=== PATIENT | female | born 1970 | race Caucasian/White ===

== ENCOUNTER 2021-01-02 19:09 | Inpatient (IN) | payer BC ==
[2021-01-02 20:14] LABS: Absolute Lymphocytes (CBC) 1.9 K/uL (0.7-4.9); Basophils % 0.3 % (0-1.3); Hematocrit 39.6 % (36.0-45.0); Lymphocytes % 6.2 % (15.3-44.8); MPV 8.1 fL (7.6-11.3); RBC Red Blood Cell Count 4.17 M/uL (3.86-4.86)
[2021-01-02 20:19] LABS: Protime INR 0.97
[2021-01-02] MEDS ORDERED: PANTOPRAZOLE 40 MG INJ ONE (20:24)
[2021-01-02] MEDS ORDERED: NA CHLORIDE 0.9% 1,000 ML ONE ×3 (20:24→23:17)
[2021-01-02] MEDS ORDERED: NA CHLORIDE 0.9% 250 ML ONE (20:24)
[2021-01-02] MEDS ORDERED: FAMOTIDINE 20 MG/2 ML VIAL IV ONE (20:25)
[2021-01-02] MEDS ORDERED: METOCLOPRAMIDE 10 MG/2mL INJ ONE (20:26)
--- NOTE | 2021-01-02 20:30 | RAD REPORT ---
EXAM DESCRIPTION: RAD - Chest Single View - 01/02/2021 8:01 pm CLINICAL HISTORY: syncope, low blood pressure COMPARISON: April 2008 TECHNIQUE: AP portable chest image was obtained 01/02/2021 8:01 pm . FINDINGS: Lungs are clear. Heart and vasculature are normal. No measurable pleural effusion and no p neumothorax. No acute bony abnormality seen. No acute aortic findings suspected. IMPRESSION: No acute cardiopulmonary process.
--- NOTE | 2021-01-02 20:38 | RAD REPORT ---
EXAM DESCRIPTION: CT - CTHCSPWOC - 01/02/2021 8:28 pm CLINICAL HISTORY: Syncope;Pain, right periorbital trauma COMPARISON: No comparisons TECHNIQUE: Axial 5 mm thick images of the head were obtained. Axial 2 mm thick images of the cervic al spine were obtained with sagittal and coronal reconstruction images generated and reviewed. All CT scans are performed using dose optimization technique as appropriate and may include automated exposure control or mA/KV adjustment according to patient size. FINDINGS: No intracranial hemorrhage, mass, edema or acute intracranial finding. No suspicion for ac chilkoot infarction. No extra-axial fluid collections. Mastoid air cells and paranasal sinuses are clear. No globe or orbit abnormality seen. Cervical body height and alignment are normal. No disk space narrowing. No fracture or acute bony abn ormality. Central canal detail is inherently limited. No paraspinal mass or hematoma. IMPRESSION: Negative CT head examination for acute or significant finding. Negative CT cervical spine examination for acute or significant finding.
[2021-01-02 20:59] LABS: Blood Morphology Comment NOT SEEN (NOT SEEN); Platelet Estimate INCR
--- NOTE | 2021-01-02 21:17 | RAD REPORT ---
EXAM DESCRIPTION: CT - Chest For Pe Angio - 01/02/2021 8:49 pm CLINICAL HISTORY: syncope;SOB COMPARISON: Chest Single View dated 01/02/2021 TECHNIQUE: Dynamically enhanced 3 mm thick images of the chest were obtained during administration o f approximately 150mL Isovue 370 IV contrast. Coronal and oblique MIP reconstruction images were gene rated and reviewed. Exam utilizes a protocol to evaluate the pulmonary arterial tree. All CT scans are performed using dose optimization technique as appropriate and may include automated exposure control or mA/KV adjustment according to patient size. FINDINGS: No pulmonary emboli are identified. The aorta as imaged shows no acute or suspicious finding. No pericardial thickening or effusion. No infiltrate or mass in the lung parenchyma. No pleural effusion or pleural thickening. No mediastinal or hilar suspicious masses. No chest wall masses or abnormal axillary lymphadenopathy. IMPRESSION: No pulmonary emboli identified. No other significant or suspicious findings.
--- NOTE | 2021-01-02 21:21 | RAD REPORT ---
EXAM DESCRIPTION: CT - Abdomen Pelvis W Contrast - 01/02/2021 8:49 pm CLINICAL HISTORY: Abd pain;Nausea / vomiting COMPARISON: CT ABD PELVIS W CONTRAST dated 03/19/2013 TECHNIQUE: Biphasic, helical CT imaging of the abdomen and pelvis was performed following 100 ml non -ionic IV contrast. No oral contrast administered. All CT scans are performed using dose optimization technique as appropriate and may include automated exposure control or mA/KV adjustment according to patient size. FINDINGS: No suspicious findings in the lung bases. The liver, spleen, and pancreas show no suspicious findings. Cholecystectomy clips are present. No bi liary tree dilatation. Symmetric renal function is seen with no hydronephrosis or suspicious renal mass. No pyelonephritis o r acute parenchymal process. No bladder abnormalities. No adrenal abnormalities. Uterus is absent. No ovarian abnormality seen. A small 12 millimeter cyst present left ovary. No gastric dilatation gastric wall thickening. No dilated small bowel loops. No appendicitis findings . Colon is not dilated. There is mild wall thickening in the colon without mass. Finding is suspiciou s for a mild pancolitis. No free air, free fluid or inflammatory stranding. No mass or bulky lymphadenopathy. No suspicious bony findings. L2 vertebroplasty changes are present. IMPRESSION: Fluid-filled nondilated colon shows mild wall thickening throughout most of the colon. F indings consistent with a mild pancolitis. No small bowel dilatation or acute small bowel finding. No surgically emergent finding.
[2021-01-02] MEDS ORDERED: CEFTRIAXONE/SWI 1gm 1 GM/10 ML SYR ONE (21:27)
[2021-01-02] MEDS ORDERED: METRONIDAZOLE 500mg IVPB 500 MG/100 ML BAG IV ONE (21:28)
[2021-01-02 22:38] LABS: SARS-COV-2 RT PCR NEGATIVE (NEGATIVE)
[2021-01-02 22:53] LABS: ALT/SGPT 25 U/L (12-78); AST/SGOT 19 U/L (15-37); Alkaline Phosphatase 76 U/L (45-117); BUN Blood Urea Nitrogen 22 mg/dL (7-18); Bicarbonate 20 mmol/L (21-32); Bilirubin Direct < 0.1 mg/dL (0-0.2); Bilirubin Total 0.4 mg/dL (0.2-1.0); Glucose Level 97 mg/dL (74-106); Magnesium 2.1 mg/dL (1.8-2.4); NT PRO-BNP 67 pg/mL (<125); Potassium 3.2 mmol/L (3.5-5.1); Protein, Total 7.3 g/dL (6.4-8.2); Sodium Level 141 mmol/L (136-145); Troponin (Emerg Dept Use Only) < 0.02 ng/mL (0.0-0.045)
--- NOTE | 2021-01-02 23:25 | EDPHYS ---
Physician Documentation [facility] Name: Vaishnavi Castano Age: 50 yrs Sex: Female : 1970 Arrival Date: 01/02/2021 Time: 19:10 Bed 27 Private MD: ED Physician Hernando Horne HPI: 01/02 20:12 This 50 yrs old Female presents to ER via EMS with complaints of hypotension. mh7 20:12 The patient has experienced syncope, collapsed. Onset: The symptoms/episode mh7 began/occurred just prior to arrival, today. Duration: The patient has had multiple episodes, that last 1 minute(s). Context: the episode(s) was witnessed, by family, son, occurred at home, occurred while the patient was defecating, sitting, Just prior to the episode the patient experienced abdominal pain, dizziness, lightheadedness, vomiting. Associated injury: Head/face: right hinduism, abrasion, contusion, tenderness, Neck: posterior neck, pain, tenderness. Associated signs and symptoms: Pertinent positives: abdominal pain, diaphoresis, diarrhea, dizziness, lightheadedness, nausea, shortness of breath, vomiting, Pertinent negatives: agitation, ataxia, blurred vision, chest pain, combativeness, confusion, headache, numbness, palpitations, seizure, tingling, vertigo, weakness. Current symptoms: nausea, generalized fatigue. 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 - Social history:: Smoking status: unknown Patient uses alcohol, but reports only rare drinking. ROS: 20:12 Constitutional: Negative for fever, chills, and weight loss, Eyes: Negative for injury, mh7 pain, redness, and discharge, ENT: Negative for injury, pain, and discharge, Cardiovascular: Negative for chest pain, palpitations, and edema, Back: Negative for injury and pain, : Negative for injury, bleeding, discharge, and swelling, MS/Extremity: Negative for injury and deformity, Skin: Negative for injury, rash, and discoloration, Neuro: Negative for headache, weakness, numbness, tingling, and seizure, Psych: Negative for depression, anxiety, suicide ideation, homicidal ideation, and hallucinations, Allergy/Immunology: Negative for hives, rash, and allergies, Endocrine: Negative for neck swelling, polydipsia, polyuria, polyphagia, and marked weight changes, Hematologic/Lymphatic: Negative for swollen nodes, abnormal bleeding, and unusual bruising. Exam: 20:12 Eyes: Pupils equal round and reactive to light, extra-ocular motions intact. Lids and mh7 lashes normal. Conjunctiva and sclera are non-icteric and not injected. Cornea within normal limits. Periorbital areas with no swelling, redness, or edema. ENT: Nares patent. No nasal discharge, no septal abnormalities noted. Tympanic membranes are normal and external auditory canals are clear. Oropharynx with no redness, swelling, or masses, exudates, or evidence of obstruction, uvula midline. Mucous membranes moist. 20:12 Chest/axilla: Normal chest wall appearance and motion. Nontender with no deformity. No lesions are appreciated. 20:12 Abdomen/GI: Soft, non-tender, with normal bowel sounds. No distension or tympany. No guarding or rebound. No evidence of tenderness throughout. Back: No spinal tenderness. No costovertebral tenderness. Full range of motion. Skin: Warm, dry with normal turgor. Normal color with no rashes, no lesions, and no evidence of cellulitis. 20:12 MS/ Extremity: Pulses equal, no cyanosis. Neurovascular intact. Full, normal range of motion. Neuro: Awake and alert, GCS 15, oriented to person, place, time, and situation. Cranial nerves II-XII grossly intact. Motor strength 5/5 in all extremities. Sensory grossly intact. Cerebellar exam normal. Normal gait. Psych: Awake, alert, with orientation to person, place and time. Behavior, mood, and affect are within normal limits. 20:12 Constitutional: The patient appears in no acute distress, alert, awake, obviously ill. 20:12 Head/face: Noted is abrasion(s), that are mild, of the right hinduism. 20:12 Neck: External neck: tenderness, that is mild, of the occiput, left mid cervical area, right mid cervical area, left trapezius and right trapezius, C-spine: Thyroid: appears normal, Trachea: is midline with no obvious abnormalities, ROM/movement: is normal, Lymph nodes: no appreciated lymphadenopathy. 20:12 Cardiovascular: Rate: bradycardic, Rhythm: regular, Pulses: no pulse deficits are appreciated, Heart sounds: normal, normal S1and S2, Edema: is not appreciated, JVD: is not appreciated. 20:12 Abdomen/GI: Rectal exam: rectal tone normal, Stool: brown, guaiac positive, hemorrhoid(s), are not appreciated, mass, is not appreciated, swelling, is not appreciated, tenderness, is not appreciated, fecal impaction, is not appreciated, the exam is chaperoned by the nurse, Indicators: Vital Signs: 19:12 BP 83 / 48; Pulse 48; Resp 17; Temp 97.5; Pulse Ox 98% ; Weight 68.49 kg; Height 5 ft. rr5 8 in. (172.72 cm); Pain 6/10; 19:40 BP 92 / 51; Pulse 80; Resp 17; Pulse Ox 98% ; rr5 21:25 BP 95 / 60; Pulse 89; Resp 19; Pulse Ox 100% ; rr5 22:37 BP 92 / 55; Pulse 92; Resp 17; Pulse Ox 98% ; rr5 23:30 BP 90 / 59; Pulse 99; Resp 16; Pulse Ox 98% ; rr5 0307 00:20 BP 94 / 57; Pulse 100; Resp 14; Pulse Ox 98% ; rr5 01:14 BP 100 / 65; Pulse 98; Resp 14; Pulse Ox 100% ; rr5 01:36 BP 103 / 68; Pulse 95; Resp 17; Temp 99; Pulse Ox 99% ; rr5 01/02 19:12 Body Mass Index 22.96 (68.49 kg, 172.72 cm) rr5 MDM: 01/02 23:21 Differential Diagnosis: aortic aneurysm, cardiac arrhythmia, cerebrovascular accident, mh7 GI bleed, sepsis, vasovagal episode. Data reviewed: vital signs, nurses notes, lab test result(s), amylase and lipase, cardiac enzymes, CBC, electrolytes, EKG, radiologic studies, CT scan, plain films. Data interpreted: Pulse oximetry: on room air is 98 %. Interpretation: normal. Counseling: I had a detailed discussion with the patient and/or guardian regarding: the historical points, exam findings, and any diagnostic results supporting the discharge/admit diagnosis, lab results, radiology results, the need for further work-up and treatment in the hospital. Response to treatment: the patient's symptoms have mildly improved after treatment. 23:24 Patient medically screened. [facility] 01/02 19:21 Order name: Basic Metabolic Panel; Complete Time: 22:56 [facility] 01/02 19:21 Order name: CBC with Diff; Complete Time: 21:05 [facility] 01/02 19:21 Order name: LFT's; Complete Time: 22:56 [facility] 01/02 19:21 Order name: Magnesium; Complete Time: 22:56 [facility] 01/02 19:21 Order name: NT PRO-BNP; Complete Time: 22:56 [facility] 01/02 19:21 Order name: PT-INR; Complete Time: 21:05 [facility] 01/02 19:21 Order name: Troponin (emerg Dept Use Only); Complete Time: 22:56 [facility] 01/02 19:21 Order name: UDS [facility] 01/02 19:21 Order name: Blood Culture Adult (2) [facility] 01/02 19:23 Order name: Lipase; Complete Time: 21:05 [facility] 01/02 19:34 Order name: Type And Screen [facility] 01/02 19:34 Order name: Type and Screen; Complete Time: 22:07 [facility] 01/02 20:16 Order name: CREATININE WHOLE BLOOD; Complete Time: 21:05 [facility] 01/02 20:59 Order name: Manual Differential; Complete Time: 21:05 [facility] 01/02 19:21 Order name: XRAY Chest (1 view); Complete Time: 21:05 [facility] 01/02 19:36 Order name: CT Head C Spine; Complete Time: 21:05 [facility] 01/02 19:40 Order name: CT Chest For PE Angio; Complete Time: 22:07 [facility] 01/02 19:40 Order name: CT Abd/Pelvis - IV Contrast Only; Complete Time: 22: [facility] 01/02 21:00 Order name: COVID-19 : Document "Date of Symptom Onset" if Symptomatic. 5 01/02 21:00 Order name: CORONAVIRUS [facility] 01/02 21:06 Order name: Lactate [facility] 01/02 21:06 Order name: Procalcitonin; Complete Time: 22:38 [facility] 01/02 21:07 Order name: Lactate; Complete Time: 22:07 [facility] 01/02 22:38 Order name: COVID-19/FLU A+B; Complete Time: 22:38 [facility] 01/02 23:14 Order name: Occult Blood--Ancillary rr5 01/02 23:30 Order name: Urine Microscopic Only la1 01/02 23:36 Order name: Urine Dipstick--Ancillary (enter results) tt3 01/02 23:36 Order name: Urine Dipstick-Ancillary; Complete Time: 01:22 [facility] 01/02 19:21 Order name: EKG; Complete Time: 19:22 [facility] 01/02 19:21 Order name: Cardiac monitoring; Complete Time: 20:00 [facility] 01/02 19:21 Order name: EKG - Nurse/Tech; Complete Time: 20:00 [facility] 01/02 19:21 Order name: IV Saline Lock; Complete Time: 20:00 [facility] 01/02 19:21 Order name: Labs collected and sent; Complete Time: 20:00 [facility] 01/02 19:21 Order name: O2 Per Protocol; Complete Time: 20:00 [facility] 01/02 19:21 Order name: O2 Sat Monitoring; Complete Time: 20:00 [facility] 01/02 19:21 Order name: Urine Dipstick-Ancillary (obtain specimen); Complete Time: 23:37 [facility] 01/02 19:21 Order name: Urine Test (obtain specimen); Complete Time: 23:37 7 Administered Medications: 19:35 CANCELLED (wrong medication): Zofran (Ondansetron) 4 mg IVP once; over 2 minutes [facility] 20:00 Drug: NS 0.9% 1000 ml Route: IV; Rate: 1000 ml; Site: right antecubital; rr5 21:00 Follow up: Response: No adverse reaction; IV Status: Completed infusion; IV Intake: rr5 1000ml 20:00 Drug: ProTONIX 80 mg Route: IVP; Site: right antecubital; rr5 21:00 Follow up: Response: No adverse reaction rr5 20:04 Drug: Reglan 10 mg Route: IVP; Site: right antecubital; rr5 21:04 Follow up: Response: No adverse reaction rr5 20:10 Drug: Pepcid 20 mg Route: IVP; Site: right antecubital; rr5 21:00 Follow up: Response: No adverse reaction rr5 21:20 Drug: Rocephin - (cefTRIAXone) 1 grams Route: IVPB; Infused Over: 30 mins; Site: right rr5 antecubital; 21:35 Follow up: Response: No adverse reaction; IV Status: Completed infusion; IV Intake: [id number] 21:22 Drug: ProTONIX 8 mg/hr Route: IV; Rate: 25 ml/hr; Site: left wrist; rr5 23:36 Follow up: Response: No adverse reaction; IV Status: Infusion continued upon admission; rr5 IV Intake: 100ml 21:26 Drug: NS 0.9% 1000 ml Route: IV; Rate: 1000 ml; Site: left wrist; rr5 22:20 Follow up: Response: No adverse reaction; IV Status: Completed infusion; IV Intake: rr5 1000ml 21:35 Drug: Flagyl 500 mg Volume: 100 ml; Route: IVPB; Rate: 200 ml/hr; Infused Over: 30 rr5 mins; Site: right antecubital; 22:00 Follow up: Response: No adverse reaction; IV Status: Completed infusion; IV Intake: rr5 100ml 23:10 Drug: NS 0.9% 1000 ml Route: IV; Rate: 1 bolus; Site: left wrist; rr5 01/03 00:10 Follow up: Response: No adverse reaction; IV Status: Completed infusion rr5 00:20 Drug: NS 0.9% 1000 ml Route: IV; Rate: 150 ml/hr; Site: left wrist; rr5 01:23 Follow up: Response: No adverse reaction; IV Status: Infusion continued upon admission; rr5 IV Intake: 150ml Disposition: 01/02/21 23:24 Hospitalization ordered by Trell Billy for Inpatient Admission. Preliminary diagnosis are Syncope and collapse, Pancolitis, Leukocytosis. - Bed requested for Telemetry/MedSurg (Inpatient). - Status is Inpatient Admission. rr5 - Condition is Stable. - Problem is new. - Symptoms have improved. Signatures: Dispatcher [employer] [facility] Bandar Frank, [employer]-C [employer]-Cla1 Kim Alves RN RN Trell Clinton RN RN rr5 Hernando Horne MD MD [facility] Corrections: (The following items were deleted from the chart) 01/02 19:35 19:22 Zofran (Ondansetron) 4 mg IVP once; over 2 minutes ordered. [place] [id number] 21:48 21:17 Influenza Screen (A \\T\\ B)+[id number].LAB.BRZ ordered. [facility] 01/03 01:06 01/02 23:24 Hospitalization Ordered by Trell Billy MD for Inpatient Admission. Preliminary diagnosis is Syncope and collapse; Pancolitis; Leukocytosis. Bed requested for Telemetry/MedSurg (Inpatient). Status is Inpatient Admission. Condition is Stable. Problem is new. Symptoms have improved. [facility] 01/03 01:37 01:06 01/02/2021 23:24 Hospitalization Ordered by Trell Billy MD for Inpatient rr5 Admission. Preliminary diagnosis is Syncope and collapse; Pancolitis; Leukocytosis. Bed requested for Telemetry/MedSurg (Inpatient). Status is Inpatient Admission. Condition is Stable. Problem is new. Symptoms have improved. cg
--- NOTE | 2021-01-02 23:25 | ER ---
Nurse's Notes [facility] Name: Vaishnavi Castano Age: 50 yrs Sex: Female : 1970 Arrival Date: 01/02/2021 Time: 19:10 Bed 27 Private MD: Diagnosis: Syncope and collapse;Pancolitis;Leukocytosis Presentation: 01/02 19:12 Chief complaint: EMS states: low blood pressure,syncopal episode hit the right side of rr5 her eye sustained abrasion. she vomited 6x complaints of of feeling tired and pain at the back of her neck. denies LOC. Coronavirus screen: sore throat, Client presents with at least one sign or symptom that may indicate coronavirus-19. Standard/surgical mask placed on the client. Provider contacted for isolation considerations. Ebola Screen: Patient negative for fever greater than or equal to 101.5 degrees Fahrenheit, and additional compatible Ebola Virus Disease symptoms Patient denies exposure to infectious person. Patient denies travel to an Ebola-affected area in the 21 days before illness onset. Initial Sepsis Screen: Does the patient meet any 2 criteria? No. Patient's initial sepsis screen is negative. Does the patient have a suspected source of infection? No. Patient's initial sepsis screen is negative. Risk Assessment: Do you want to hurt yourself or someone else? Patient reports no desire to harm self or others. Onset of symptoms was January 02, 2021. 19:12 Method Of Arrival: EMS: [facility] rr5 19:12 Acuity: RYLIE 2 rr5 Triage Assessment: 19:10 General: Appears in no apparent distress. comfortable, Behavior is calm, cooperative. 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 - Social history:: Smoking status: unknown Patient uses alcohol, but reports only rare drinking. Screenin:10 Abuse screen: Denies threats or abuse. Denies injuries from another. Nutritional rr5 screening: No deficits noted. Tuberculosis screening: No symptoms or risk factors identified. Fall Risk Fall in past 12 months (25 points). IV access (20 points). Total Still Fall Scale indicates High Risk Score (45 or more points). Fall prevention measures have been instituted. Side Rails Up X 2 Placed Close to Nursing Station Frequent Obs/Assessments Occuring Family Present and informed to notify staff if the need to leave the bedside As available patient and family educated on Fall Prevention Program and Strategies. Assessment: 19:10 General: Appears in no apparent distress. uncomfortable. rr5 19:10 Pain: Complains of pain in nape Pain currently is 6 out of 10 on a pain scale. Quality rr5 of pain is described as aching, Pain began gradually. Neuro: Level of Consciousness is awake, alert, obeys commands, Oriented to person, place, time, Reports a syncopal episode. Cardiovascular: Capillary refill < 3 seconds Patient's skin is warm and dry. low BP. Respiratory: Airway is patent Respiratory effort is even, unlabored, Respiratory pattern is regular, symmetrical. GI: Abdomen is round non-distended, Reports diarrhea, nausea, vomiting. : No signs and/or symptoms were reported regarding the genitourinary system. EENT: No signs and/or symptoms were reported regarding the EENT system. Derm: Skin temperature is warm Wound noted right supraorbital ridge Wound is abrasion. Musculoskeletal: Capillary refill < 3 seconds. 19:30 Reassessment: went to restroom to have a bowel movement, offered bedside but refused, rr5 ED provider aware. 20:20 Reassessment: Patient appears in no apparent distress at this time. Patient is alert, rr5 oriented x 3, equal unlabored respirations, skin warm/dry/pink. send for CT scan. 20:51 Reassessment: holy from laboratory called WBC 30.1, ED provider aware. rr5 21:30 Reassessment: Patient appears in no apparent distress at this time. Patient is alert, rr5 oriented x 3, equal unlabored respirations, skin warm/dry/pink. antibiotics given. 22:20 Reassessment: laboratory called to recollect for the gree top, verify to laboratory rr5 staff 2 green top sent and said no need to recollect. 01/03 00:21 Reassessment: Patient appears in no apparent distress at this time. for admission rr5 awaiting for room assignment. Vital Signs: 01/02 19:12 BP 83 / 48; Pulse 48; Resp 17; Temp 97.5; Pulse Ox 98% ; Weight 68.49 kg; Height 5 ft. rr5 8 in. (172.72 cm); Pain 6/10; 19:40 BP 92 / 51; Pulse 80; Resp 17; Pulse Ox 98% ; rr5 21:25 BP 95 / 60; Pulse 89; Resp 19; Pulse Ox 100% ; rr5 22:37 BP 92 / 55; Pulse 92; Resp 17; Pulse Ox 98% ; rr5 23:30 BP 90 / 59; Pulse 99; Resp 16; Pulse Ox 98% ; rr5 01/03 00:20 BP 94 / 57; Pulse 100; Resp 14; Pulse Ox 98% ; rr5 01:14 BP 100 / 65; Pulse 98; Resp 14; Pulse Ox 100% ; rr5 01:36 BP 103 / 68; Pulse 95; Resp 17; Temp 99; Pulse Ox 99% ; rr5 01/02 19:12 Body Mass Index 22.96 (68.49 kg, 172.72 cm) rr5 ED Course: 01/02 19:10 Patient arrived in ED. rr5 19:10 EKG done, by ED staff, reviewed by Hernando Horne MD. Maintain EMS IV. Dressing intact. rr5 Good blood return noted. Site clean \T\ dry. Gauge \T\ site: G 20 right AC. 19:11 Patient has correct armband on for positive identification. Bed in low position. Call rr5 light in reach. Side rails up X2. bakeshop cleaner on. Pulse ox on. NIBP on. 19:11 Warm blanket given. rr5 19:15 Triage completed. rr5 19:17 Hernando Horne MD is Attending Physician. [facility] 19:19 Arm band placed on right wrist. rr5 19:40 Inserted saline lock: 20 gauge in left wrist, using aseptic technique. Blood collected. rr5 19:40 First set of blood cultures drawn by me. rr5 19:59 Clinton, Trell, RN is Primary Nurse. rr5 20:02 XRAY Chest (1 view) In Process Unspecified. EDMS 20:33 CT Head C Spine In Process Unspecified. EDMS 20:49 CT Chest For PE Angio In Process Unspecified. EDMS 20:49 CT Abd/Pelvis - IV Contrast Only In Process Unspecified. EDMS 21:28 COVID swab sent to lab. Flu and/or RSV swab sent to lab. rr5 23:23 Trell Billy MD is Hospitalizing Provider. [facility] 03 01:21 No provider procedures requiring assistance completed. Patient admitted, IV remains in rr5 place. intact, No redness/swelling at site. Administered Medications: 01/02 19:35 CANCELLED (wrong medication): Zofran (Ondansetron) 4 mg IVP once; over 2 minutes [facility] 20:00 Drug: NS 0.9% 1000 ml Route: IV; Rate: 1000 ml; Site: right antecubital; rr5 21:00 Follow up: Response: No adverse reaction; IV Status: Completed infusion; IV Intake: rr5 1000ml 20:00 Drug: ProTONIX 80 mg Route: IVP; Site: right antecubital; rr5 21:00 Follow up: Response: No adverse reaction rr5 20:04 Drug: Reglan 10 mg Route: IVP; Site: right antecubital; rr5 21:04 Follow up: Response: No adverse reaction rr5 20:10 Drug: Pepcid 20 mg Route: IVP; Site: right antecubital; rr5 21:00 Follow up: Response: No adverse reaction rr5 21:20 Drug: Rocephin - (cefTRIAXone) 1 grams Route: IVPB; Infused Over: 30 mins; Site: right rr5 antecubital; 21:35 Follow up: Response: No adverse reaction; IV Status: Completed infusion; IV Intake: [id number] 21:22 Drug: ProTONIX 8 mg/hr Route: IV; Rate: 25 ml/hr; Site: left wrist; rr5 23:36 Follow up: Response: No adverse reaction; IV Status: Infusion continued upon admission; rr5 IV Intake: 100ml 21:26 Drug: NS 0.9% 1000 ml Route: IV; Rate: 1000 ml; Site: left wrist; rr5 22:20 Follow up: Response: No adverse reaction; IV Status: Completed infusion; IV Intake: rr5 1000ml 21:35 Drug: Flagyl 500 mg Volume: 100 ml; Route: IVPB; Rate: 200 ml/hr; Infused Over: 30 rr5 mins; Site: right antecubital; 22:00 Follow up: Response: No adverse reaction; IV Status: Completed infusion; IV Intake: rr5 100ml 23:10 Drug: NS 0.9% 1000 ml Route: IV; Rate: 1 bolus; Site: left wrist; rr5 03 00:10 Follow up: Response: No adverse reaction; IV Status: Completed infusion rr5 00:20 Drug: NS 0.9% 1000 ml Route: IV; Rate: 150 ml/hr; Site: left wrist; rr5 01:23 Follow up: Response: No adverse reaction; IV Status: Infusion continued upon admission; rr5 IV Intake: 150ml Intake: 01/02 21:00 IV: 1000ml; Total: 1000ml. rr5 21:35 IV: 50ml; Total: 1050ml. rr5 22:00 IV: 100ml; Total: 1150ml. rr5 22:20 IV: 1000ml; Total: 2150ml. rr5 23:36 IV: 100ml; Total: 2250ml. rr5 01/03 01:23 IV: 150ml; Total: 2400ml. rr5 Outcome: 01/02 23:24 Decision to Hospitalize by Provider. mh7 01/03 01:21 Admitted to Med/surg accompanied by tech, via stretcher, room 219, with chart, Report rr5 called to [place] Condition: stable Instructed on the need for admit. 01:37 Patient left the ED. rr5 Signatures: Dispatcher [employer] Trell Chua RN RN rr5 Hernando Horne MD MD 7
[2021-01-03 00:08] LABS: Urine Blood TRACE (NEG); Urine Glucose NEGATIVE (NEG); Urine Protein NEGATIVE (NEG)
[2021-01-03] MEDS ORDERED: NA CHLORIDE 0.9% 1,000 ML ONE (00:59)
--- NOTE | 2021-01-03 01:27 | P.HP ---
Certification for Inpatient Patient admitted to: Inpatient With expected LOS: >2 Midnights Patient will require the following post-hospital care: None Practitioner: I am a practitioner with admitting privileges, knowledge of patient current condition, hospital course, and medical plan of care. Services: Services provided to patient in accordance with Admission requirements found in Title 42 Section 412.3 of the Code of Federal Regulations <Bandar Frank - Last Filed: 01/03/21 01:21> Patient History Date of Service: 01/03/21 Primary Care Provider: Dr. Rsoario Reason for admission: Pancolitis History of Present Illness: 42-year-old female with history of hypertension, psoriatic arthritis, lupus hypothyroidism presents emergency department for syncope. Patient reports that she has been having abdominal cramping throughout the day and after having a bowel movement she stood up from the toilet and had a syncopal episode with positive loss of consciousness. Patient does not remember the events leading up to syncope, unsure if she experienced any chest pain/dizziness/headache but does not think so. Upon arrival by EMS patient's blood pressure was 60/40, this improved with fluids while the patient is still mildly hypertensive in the emergency department. Workup in the emergency department significant for white blood cell count 30.[address] demonstrates pain colitis, patient did have a positive stool guaiac in the emergency department, hemoglobin 13.6 hematocrit 39.6, patient denies any melena or hematochezia. - Past Medical/Surgical History -: Lupus -: Psoriatic arthritis -: Colitis -: Hypothyroidism -: Hypertension -: Hysterectomy -: Cholecystectomy Psychosocial/ Personal History: Patient lives with family - Family History Family History: Reviewed- Non-Contributory - Social History Smoking Status: Never smoker Alcohol use: No CD- Drugs: No Caffeine use: Yes Place of Residence: Home <Bandar Frank - Last Filed: 01/03/21 01:21> Date of Service: 01/03/21 <Trell Billy - Last Filed: 01/03/21 20:39> Allergies propoxyphene napsylate [From Darvocet-N 100] Allergy (Mild, Verified 08/02/12 07:41) Hives/Rash Home Medications: Bupropion HCl [Wellbutrin Xl] 300 mg PO BREAKFAST 01/03/21 Cyclobenzaprine HCl [Flexeril] 5 mg PO DAILY 01/03/21 Dextroamphetamine/Amphetamine [Adderall 15 mg Tablet] 15 mg PO DAILY AT SUPPER 01/03/21 Dextroamphetamine/Amphetamine [Adderall 30 mg Tablet] 30 mg PO DAILY WITH BREAKFAST 01/03/21 Folic Acid/Vit B Complex and C [Folbee Plus Tablet] 5 mg PO DAILY 01/03/21 Hydrocodone 10/APAP 325 [[place] 10/325] 1 tab PO Q6H PRN 01/03/21 Levothyroxine [Synthroid] 125 mcg PO [id number] 01/03/21 Methotrexate/Pf [Rasuvo 25 mg/0.5 ml Autoinj] 50 mg SQ EVERY 7TH DAY 01/03/21 Naloxegol Oxalate [Movantik] 25 mg PO DAILY 01/03/21 Naproxen/Esomeprazole Mag [Vimovo Dr 500-20 mg Tablet] 1 tab PO BID 01/03/21 Pantoprazole [Protonix Tab] 40 mg PO NOON 01/03/21 Ropinirole HCl [Requip] 1 mg PO DAILY 01/03/21 Topiramate [Topamax] 200 mg PO BID 01/03/21 Review of Systems 10-point ROS is otherwise unremarkable General: Weakness, Malaise Cardiovascular: Light Headedness, As per HPI Gastrointestinal: Nausea, Vomiting, Abdominal Pain, Diarrhea <Bandar Frank - Last Filed: 01/03/21 01:21> Physical Examination - Physical Exam General: Alert, In no apparent distress, Oriented x3 HEENT: Atraumatic, PERRLA, Other (Mucous membranes dry) Neck: Supple, 2+ carotid pulse no bruit, No LAD Respiratory: Clear to auscultation bilaterally, Normal air movement Cardiovascular: No edema, Regular rate/rhythm, Normal S1 S2 Capillary refill: <2 Seconds Gastrointestinal: Normal bowel sounds, Tenderness (Mild abdominal tenderness in the lower quadrants and suprapubic area) Musculoskeletal: No contractures, No erythema, No tenderness Integumentary: No rashes Neurological: Normal speech, Normal strength at 5/5 x4 extr, Normal tone, Normal affect - Studies Laboratory Data (last 24 hrs) 01/02/21 19:52: Lipase 179 01/02/21 19:52: PT 11.1, INR 0.97 01/02/21 19:52: WBC 30.10 H*, Hgb 13.6, Hct 39.6, Plt Count 490 H 01/02/21 19:52: Sodium 141, Potassium 3.2 L, BUN 22 H, Creatinine 1.22, Glucose 97, Magnesium 2.1, Total Bilirubin 0.4, AST 19, ALT 25, Alkaline Phosphatase 76 <Bandar Frank - Last Filed: 01/03/21 01:21> - Studies Laboratory Data (last 24 hrs) 01/02/21 19:52: Lipase 179 01/02/21 19:52: PT 11.1, INR 0.97 01/02/21 19:52: WBC 30.10 H*, Hgb 13.6, Hct 39.6, Plt Count 490 H 01/02/21 19:52: Sodium 141, Potassium 3.2 L, BUN 22 H, Creatinine 1.22, Glucose 97, Magnesium 2.1, Total Bilirubin 0.4, AST 19, ALT 25, Alkaline Phosphatase 76 Microbiology Data (last 24 hrs): 01/02/21 19:52 Blood - Blood Anaerobic Blood Culture - Final <Trell Billy - Last Filed: 01/03/21 20:39> Assessment and Plan - Plan Assessment Vomiting/diarrhea/abdominal pain secondary to pancolitis Hypotension Hypokalemia Psoriatic arthritis, lupus Hypertension Hypothyroidism Plan Vomiting/diarrhea/abdominal pain secondary to pancolitis: Continue with IV Rocephin/Flagyl, stool studies ordered including C. diff as patient as significantly elevated white cell count. P.r.n. pain medication, start a clear liquid diet at this time as patient is tolerating p.o. in the emergency department. Continue with NS at 150 cc/hour over night as patient appears dry. DVT prophylaxis with SCDs at this time as patient was guaiac-positive. Continue with Protonix 40 IV b.i.d., trend hemoglobin hematocrit levels. Patient denies any melena/hematochezia. Hypotension: Patient received 3 L normal saline bolus in the emergency department, continue NS at 150 cc/hour., lactate normal, no end-organ damage, doubt sepsis. Hypokalemia: Potassium protocol in place. Psoriatic arthritis, lupus: Obtain and review home medications, start as appropriate. Hypertension: Obtain and continue home medications as appropriate Hypothyroidism: Thyroid panel with morning labs. Continue home meds. Discharge Plan: Home Plan to discharge in: 72 Hours - Advance Directives Does patient have a Living Will: No Does patient have a Durable POA for Healthcare: No - Code Status/Comfort Care Code Status Assessed: Yes (Full code) Critical Care: No Time Spent Managing Pts Care (In Minutes): 55 <Bandar Frank - Last Filed: 01/03/21 01:21> - Plan Plan of care reviewed and agree as noted above by Bandar Frank. Pancolitis with diarrhea. Metabolic acidosis likely secondary to diarrhea continue antibiotics <Trell Billy - Last Filed: 01/03/21 20:39>
[2021-01-03] MEDS ORDERED: ONDANSETRON 4 MG/2 ML VIAL IV PRN (01:50)
[2021-01-03] MEDS ORDERED: SODIUM CHLORIDE 0.9% 10ML INJ IV PRN (01:50)
[2021-01-03] MEDS ORDERED: ACETAMINOPHEN 500 MG TAB PO PRN (01:50)
[2021-01-03 02:13] LABS: Barbiturates POSITIVE (NEGATIVE); Benzodiazepines NEGATIVE (NEGATIVE); Cocaine NEGATIVE (NEGATIVE); METHAMPHETAM POSITIVE (NEGATIVE); Methadone NEGATIVE (NEGATIVE); Opiates NEGATIVE (NEGATIVE); Phencyclidine NEGATIVE (NEGATIVE); THC Cannibis NEGATIVE (NEGATIVE)
[2021-01-03 02:26] VITALS: BMI 22.9
[2021-01-03 06:26] LABS: Absolute Lymphocytes (CBC) 2.5 K/uL (0.7-4.9); Basophils % 0.2 % (0-1.3); Hematocrit 30.3 % (36.0-45.0); Lymphocytes % 20.4 % (15.3-44.8); MPV 8.3 fL (7.6-11.3); RBC Red Blood Cell Count 3.17 M/uL (3.86-4.86)
[2021-01-03 06:52] LABS: Albumin 2.7 g/dL (3.4-5.0); Bilirubin Total 0.4 mg/dL (0.2-1.0); Magnesium 1.9 mg/dL (1.8-2.4); Potassium 3.2 mmol/L (3.5-5.1); Protein, Total 5.2 g/dL (6.4-8.2); Thyroid Stimulating Hormone 0.701 uIU/mL (0.360-3.740)
[2021-01-03] MEDS: NA CHLORIDE 0.9% 1,000 ML IV SCH ×2 (07:00→08:30)
[2021-01-03] MEDS: METRONIDAZOLE 500mg IVPB 500 MG/100 ML BAG IV SCH ×2 (08:56→17:00)
[2021-01-03] MEDS ORDERED: CEFTRIAXONE 1 GM/NS 50 ML 1 GM/50 ML BAG IV SCH (09:00)
[2021-01-03] MEDS: PANTOPRAZOLE 40 MG INJ IVP SCH ×2 (09:01→20:17)
[2021-01-03] MEDS: HYDROCODONE/APAP 7.5/325 MG TAB PO PRN ×3 (09:09→22:12)
[2021-01-03] MEDS: CEFTRIAXONE/SWI 1gm 1 GM/10 ML SYR IV SCH (09:49)
--- NOTE | 2021-01-03 11:46 | P.PN ---
Subjective Date of Service: 01/03/21 Primary Care Provider: Dr. Rosario Chief Complaint: Pancolitis Subjective: Improving (headache slightly improved, continues with diarrhea, tolerated some clear liquids) Review of Systems 10-point ROS is otherwise unremarkable Physical Examination - Vital Signs Temperature: 97.8 F Blood Pressure: 93/54 Pulse: 85 Respirations: 18 Pulse Ox (%): 100 - Studies Laboratory Data (last 24 hrs) 01/02/21 19:52: Lipase 179 01/02/21 19:52: PT 11.1, INR 0.97 01/02/21 19:52: WBC 30.10 H*, Hgb 13.6, Hct 39.6, Plt Count 490 H 01/02/21 19:52: Sodium 141, Potassium 3.2 L, BUN 22 H, Creatinine 1.22, Glucose 97, Magnesium 2.1, Total Bilirubin 0.4, AST 19, ALT 25, Alkaline Phosphatase 76 Microbiology Data (last 24 hrs): 01/02/21 19:52 Blood - Blood Anaerobic Blood Culture - Final Assessment & Plan Physician Review Additional Text: Physical Exam General: alert, NAD HEENT: MMM Respiratory: Clear to auscultation bilaterally, Normal air movement Cardiovascular: No edema, Regular rate/rhythm, Normal S1 S2 Abd: soft, mild TTP in b/l lower quadrants Ext: no edema, no rash Problem List Vomiting/diarrhea/abdominal pain secondary to pancolitis Hypotension Hypokalemia metabolic acidosis Psoriatic arthritis, lupus Hypertension Hypothyroidism some improvement already continue antibiotics WBC down to 12. C.diff ordered/pending on CLD, can advance for dinner if tolerates hypernatremic slightly now, switch to d5 1/2 NS metabolic acidosis - likely due to diarrhea Vomiting/diarrhea/abdominal pain secondary to pancolitis: Continue with IV Rocephin/Flagyl, stool studies ordered including C. diff as patient as significantly elevated white cell count. P.r.n. pain medication, start a clear liquid diet at this time as patient is tolerating p.o. in the emergency department. Continue with NS at 150 cc/hour over night as patient appears dry. DVT prophylaxis with SCDs at this time as patient was guaiac-positive. Continue with Protonix 40 IV b.i.d., trend hemoglobin hematocrit levels. Patient denies any melena/hematochezia. Obtain and continue home medications, start as appropriate. Code: full Dispo: anticipate dc home in ~48hrs. Time Spent Managing Pts Care (In Minutes): 35
[2021-01-03] MEDS: LIDOCAINE 4% PATCH TOP SCH (15:00)
[2021-01-03] MEDS: D5 0.45 NS 1,000 ML IV SCH ×2 (15:01→22:56)
[2021-01-03] MEDS: CYCLOBENZAPRINE 10 MG TAB PO PRN (15:17)
[2021-01-03] MEDS ORDERED: HYDROCORTISONE SUC 100 MG INJ IV ONE (19:49)
[2021-01-03 19:55] VITALS: O2SAT 100
[2021-01-03 23:24] LABS: BUN Blood Urea Nitrogen 7 mg/dL (7-18); Bicarbonate 23 mmol/L (21-32); Glucose Level 120 mg/dL (74-106); Potassium 3.1 mmol/L (3.5-5.1); Sodium Level 147 mmol/L (136-145)
[2021-01-04] MEDS ORDERED: POTASSIUM 25 MEQ EFFERV TAB PO ONE ×2 (00:11→17:00)
[2021-01-04] MEDS: METRONIDAZOLE 500mg IVPB 500 MG/100 ML BAG IV SCH ×3 (01:00→17:15)
[2021-01-04] MEDS: D5 0.45 NS 1,000 ML IV SCH (03:00)
[2021-01-04 05:51] LABS: Absolute Lymphocytes (CBC) 2.8 K/uL (0.7-4.9); Basophils % 0.3 % (0-1.3); Hematocrit 27.4 % (36.0-45.0); RBC Red Blood Cell Count 2.86 M/uL (3.86-4.86)
[2021-01-04] MEDS: HYDROCODONE/APAP 7.5/325 MG TAB PO PRN ×2 (05:57→22:05)
[2021-01-04] MEDS: CYCLOBENZAPRINE 10 MG TAB PO PRN (05:57)
[2021-01-04 06:16] LABS: ALT/SGPT 16 U/L (12-78); AST/SGOT 7 U/L (15-37); Albumin 2.5 g/dL (3.4-5.0); Alkaline Phosphatase 49 U/L (45-117); BUN Blood Urea Nitrogen 7 mg/dL (7-18); Bicarbonate 24 mmol/L (21-32); Bilirubin Total 0.2 mg/dL (0.2-1.0); C-Reactive Protein 3.19 mg/L (<3.00); Glucose Level 105 mg/dL (74-106); Magnesium 1.9 mg/dL (1.8-2.4); Potassium 3.3 mmol/L (3.5-5.1); Protein, Total 4.9 g/dL (6.4-8.2); Sodium Level 148 mmol/L (136-145)
[2021-01-04] MEDS: LEVOTHYROXINE SOD 0.125 MG TAB PO SCH (06:41)
[2021-01-04] MEDS: LIDOCAINE 4% PATCH TOP SCH (09:49)
[2021-01-04] MEDS: PANTOPRAZOLE 40 MG INJ IVP SCH ×2 (09:50→21:58)
[2021-01-04] MEDS: CEFTRIAXONE/SWI 1gm 1 GM/10 ML SYR IV SCH (09:50)
[2021-01-04] MEDS: TOPIRAMATE 100 MG TAB PO SCH ×2 (10:12→22:17)
--- NOTE | 2021-01-04 12:34 | P.PN ---
Subjective Date of Service: 01/04/21 Primary Care Provider: Dr. Rosario Chief Complaint: Pancolitis Subjective: Improving (no longer having diarrhea, tolerating diet, no abdominal pain. continues with head / muscle pain on sides of neck. no stiffness/nuchal rigidity. no photophobia continues with low BP) Review of Systems 10-point ROS is otherwise unremarkable Physical Examination - Vital Signs Temperature: 98.4 F Blood Pressure: 94/52 Pulse: 76 Respirations: 14 Pulse Ox (%): 99 - Studies Microbiology Data (last 24 hrs): 01/02/21 19:52 Blood - Blood Anaerobic Blood Culture - Final Assessment & Plan Physician Review Additional Text: Physical Exam General: alert, NAD HEENT: MMM Neck: mild TTP along b/l sternocleidomastoids, no nuchal rigidity Respiratory: Clear to auscultation bilaterally, Normal air movement Cardiovascular: No edema, Regular rate/rhythm, Normal S1 S2 Abd: soft, NTND, no distention Ext: no edema, no rash Problem List Vomiting/diarrhea/abdominal pain secondary to pancolitis Hypotension Hypokalemia Hypernatremia metabolic acidosis Psoriatic arthritis, lupus Hypertension Hypothyroidism improving, Procal negative, leukocytosis normalized. continue antibiotics for now, pending cultures few fecal leukocyte cells noted, C.diff ordered/pending advance diet hypernatremic secondry to IVF - will switch to D5 + KCL, met acidosis resolved / diarrhea resolved for now. Nephrology consulted reported was heme positive in ED - continue with Protonix 40 IV b.i.d., trend hemoglobin hematocrit levels. Patient reports some black stool over the past 2 days, cleared up last night also takes iron supplementation and h/o hemorrhoids - could contribute to heme + in ED restart home medications hypotension not responding to IVF, will eval for adrenal insuff, start hydrocortisone Code: full Dispo: anticipate dc home in ~48hrs. Time Spent Managing Pts Care (In Minutes): 35
[2021-01-04] MEDS: HYDROCORTISONE SUC 100 MG INJ IV SCH ×2 (13:05→21:59)
[2021-01-04 15:04] LABS: C.diff Antigen/Toxin Ag neg : Tox neg (NEG : NEG)
[2021-01-04] MEDS: D5W 1,000 ML with POTASSIUM CL 20 MEQ IV SCH ×4 (18:37→23:06)
[2021-01-04] MEDS ORDERED: WATER FOR INJ,STERILE 10 ML IV SCH (19:00)
[2021-01-04] MEDS: ESOMEPRAZOLE MAG PO SCH (21:00)
[2021-01-04] MEDS: NAPROXEN PO SCH (21:00)
--- NOTE | 2021-01-04 21:04 | P.CNS ---
Date of Consult: 01/04/21 Reason for Consult: Hypernatremia/ Hypokalemia Requesting Physician: Trell Billy Primary Care Provider: Dr. Rosario Chief Complaint: Pancolitis History of Present Illness: 42-year-old female with history of hypertension, psoriatic arthritis, lupus hypothyroidism presents emergency department for syncope. Patient reports that she has been having abdominal cramping throughout the day and after having a bowel movement she stood up from the toilet and had a syncopal episode with positive loss of consciousness. Patient does not remember the events leading up to syncope, unsure if she experienced any chest pain/dizziness/headache but does not think so. Upon arrival by EMS patient's blood pressure was 60/40, this improved with fluids while the patient is still mildly hypertensive in the [facility] department. Workup in the emergency department significant for white blood cell count 30.[address] demonstrates pain colitis, patient did have a positive stool guaiac in the emergency department, hemoglobin 13.6 hematocrit 39.6, patient denies any melena or hematochezia. 20:12 This 50 yrs old Female presents to ER via EMS with complaints of hypotension. mh7 20:12 The patient has experienced syncope, collapsed. Onset: The symptoms/episode mh7 began/occurred just prior to arrival, today. Duration: The patient has had multiple episodes, that last 1 minute(s). Context: the episode(s) was witnessed, by family, son, occurred at home, occurred while the patient was defecating, sitting, Just prior to the episode the patient experienced abdominal pain, dizziness, lightheadedness, vomiting. Associated injury: Head/face: right denominational, abrasion, contusion, tenderness, Neck: posterior neck, pain, tenderness. Associated signs and symptoms: Pertinent positives: abdominal pain, diaphoresis, diarrhea, dizziness, lightheadedness, nausea, shortness of breath, vomiting, Pertinent negatives: agitation, ataxia, blurred vision, chest pain, combativeness, confusion, headache, numbness, palpitations, seizure, tingling, vertigo, weakness. Current symptoms: nausea, generalized fatigue. Allergies propoxyphene napsylate [From Darvocet-N 100] Allergy (Mild, Verified 08/02/12 07:41) Hives/Rash Home Medications: Bupropion HCl [Wellbutrin Xl] 300 mg PO BREAKFAST 01/03/21 Cyclobenzaprine HCl [Flexeril] 5 mg PO DAILY 01/03/21 Dextroamphetamine/Amphetamine [Adderall 15 mg Tablet] 15 mg PO DAILY AT SUPPER 01/03/21 Dextroamphetamine/Amphetamine [Adderall 30 mg Tablet] 30 mg PO DAILY WITH BREAKFAST 01/03/21 Folic Acid/Vit B Complex and C [Folbee Plus Tablet] 5 mg PO DAILY 01/03/21 Hydrocodone 10/APAP 325 [[place] 10/325] 1 tab PO Q6H PRN 01/03/21 Levothyroxine [Synthroid] 125 mcg PO [id number] 01/03/21 Methotrexate/Pf [Rasuvo 25 mg/0.5 ml Autoinj] 50 mg SQ EVERY 7TH DAY 01/03/21 Naloxegol Oxalate [Movantik] 25 mg PO DAILY 01/03/21 Naproxen/Esomeprazole Mag [Vimovo Dr 500-20 mg Tablet] 1 tab PO BID 01/03/21 Pantoprazole [Protonix Tab] 40 mg PO NOON 01/03/21 Ropinirole HCl [Requip] 1 mg PO DAILY 01/03/21 Topiramate [Topamax] 200 mg PO BID 01/03/21 - Past Medical/Surgical History -: Lupus -: Psoriatic arthritis -: Colitis -: Hypothyroidism -: Hypertension -: Hysterectomy -: Cholecystectomy Psychosocial/ Personal History: Patient lives with family - Social History Smoking Status: Unknown if ever smoked Alcohol use: No CD- Drugs: No Caffeine use: Yes Place of Residence: Home Physical Examination Temp Pulse Resp BP Pulse Ox 98.4 F 76 14 94/52 L 99 01/04/21 16:29 01/04/21 16:29 01/04/21 16:29 01/04/21 16:29 01/04/21 16:29 Blood work reviewed in the chart. Imagings Data: EXAM DESCRIPTION: CT - Chest For Pe Angio - 01/02/2021 8:49 pm CLINICAL HISTORY: syncope;SOB COMPARISON: Chest Single View dated 01/02/2021 TECHNIQUE: Dynamically enhanced 3 mm thick images of the chest were obtained during administration of approximately 150mL Isovue 370 IV contrast. Coronal and oblique MIP reconstruction images were generated and reviewed. Exam utilizes a protocol to evaluate the pulmonary arterial tree. All CT scans are performed using dose optimization technique as appropriate and may include automated exposure control or mA/KV adjustment according to patient size. FINDINGS: No pulmonary emboli are identified. The aorta as imaged shows no acute or suspicious finding. No pericardial thicke mata or effusion. No infiltrate or mass in the lung parenchyma. No pleural effusion or pleural thickening. No mediastinal or hilar suspicious masses. No chest wall masses or abnormal axillary lymphadenopathy. IMPRESSION: No pulmonary emboli identified. No other significant or suspicious findings. EXAM DESCRIPTION: CT - Abdomen Pelvis W Contrast - 01/02/2021 8:49 pm CLINICAL HISTORY: Abd pain;Nausea / vomiting COMPARISON: CT ABD PELVIS W CONTRAST dated 03/19/2013 TECHNIQUE: Biphasic, helical CT imaging of the abdomen and pelvis was performed following 100 ml non-ionic IV contrast. No oral contrast administered. All CT scans are performed using dose optimization technique as appropriate and may include automated exposure control or mA/KV adjustment according to patient size. FINDINGS: No suspicious findings in the lung bases. The liver, spleen, and pancreas show no suspicious findings. Cholecystectomy clips are present. No biliary tree dilatation. Symmetric renal function is seen with no hydronephrosis or suspicious renal mass. No pyelonephritis or acute parenchymal process. No bladder abnormalities. No adrenal abnormalities. Uterus is absent. No ovarian abnormality seen. A small 12 millimeter cyst present left ovary. No gastric dilatation gastric wall thickening. No dilated small bowel loops. No appendicitis findings. Colon is not dilated. There is mild wall thickening in the colon without mass. Finding is suspicious for a mild pancolitis. No free air, free fluid or inflammatory stranding. No mass or bulky lymphadenopathy. No suspicious bony findings. L2 vertebroplasty changes are present. IMPRESSION: Fluid-filled nondilated colon shows mild wall thickening throughout most of the colon. Findings consistent with a mild pancolitis. No small bowel dilatation or acute small bowel finding. No surgically emergent finding. EXAM DESCRIPTION: RAD - Chest Single View - 01/02/2021 8:01 pm CLINICAL HISTORY: syncope, low blood pressure COMPARISON: April 2008 TECHNIQUE: AP portable chest image was obtained 01/02/2021 8:01 pm . FINDINGS: Lungs are clear. Heart and vasculature are normal. No measurable p leural effusion and no pneumothorax. No acute bony abnormality seen. No acute aortic findings suspected. IMPRESSION: No acute cardiopulmonary process. Conclusions/Impression: A/P Hypernatremia -Continue D5W with potassium -Give 1/2NS bolus X500ml Hypokalemia -Replete potassium Hypocalcemia -Start Vitamin D Hypotension -Give 1/2NS bolus X500ml -Renin and aldosterone pending Moderate malnutrition -Advance diet as tolerated Anemia in chronic illness -Monitor H&H -Transfuse PRBC as needed Pancolitis -Continue Rocephin
[2021-01-04] MEDS: NACHLORIDE 0.45% 500 ML IV SCH (23:13)
[2021-01-05] MEDS: NACHLORIDE 0.45% 500 ML IV SCH
[2021-01-05] MEDS ORDERED: POTASSIUM 25 MEQ EFFERV TAB PO ONE (00:22)
[2021-01-05] MEDS: METRONIDAZOLE 500mg IVPB 500 MG/100 ML BAG IV SCH ×3 (00:50→17:00)
[2021-01-05] MEDS: D5W 1,000 ML with POTASSIUM CL 20 MEQ IV SCH ×2 (04:56)
[2021-01-05] MEDS: HYDROCODONE/APAP 7.5/325 MG TAB PO PRN ×2 (04:56→12:14)
[2021-01-05] MEDS: LEVOTHYROXINE SOD 0.125 MG TAB PO SCH (04:57)
[2021-01-05 06:37] LABS: Absolute Lymphocytes (CBC) 2.3 K/uL (0.7-4.9); Basophils % 0.5 % (0-1.3); Hematocrit 28.6 % (36.0-45.0); Lymphocytes % 33.3 % (15.3-44.8); MPV 8.4 fL (7.6-11.3); RBC Red Blood Cell Count 2.96 M/uL (3.86-4.86)
[2021-01-05] MEDS: CYCLOBENZAPRINE 10 MG TAB PO PRN (07:16)
[2021-01-05 07:22] LABS: ALT/SGPT 21 U/L (12-78); AST/SGOT 9 U/L (15-37); Albumin 2.5 g/dL (3.4-5.0); Alkaline Phosphatase 48 U/L (45-117); BUN Blood Urea Nitrogen 5 mg/dL (7-18); Bicarbonate 22 mmol/L (21-32); Bilirubin Total 0.2 mg/dL (0.2-1.0); Glucose Level 101 mg/dL (74-106); Potassium 3.7 mmol/L (3.5-5.1); Sodium Level 148 mmol/L (136-145)
[2021-01-05 07:27] LABS: C-Reactive Protein < 2.90 mg/L (<3.00)
[2021-01-05] MEDS ORDERED: POTASSIUM 25 MEQ EFFERV TAB FT ONE (07:34)
[2021-01-05] MEDS: LIDOCAINE 4% PATCH TOP SCH (09:00)
[2021-01-05] MEDS ORDERED: VITAMIN D 5,000 UNIT CAP PO SCH (09:00)
[2021-01-05] MEDS ORDERED: POTASSIUM CL SA 10 MEQ TAB PO ONE (09:00)
[2021-01-05] MEDS ORDERED: ROPINIROLE HCL 1 MG TAB PO SCH (09:00)
[2021-01-05] MEDS ORDERED: CALCITROL 0.25 MCG CAP PO SCH (09:00)
[2021-01-05] MEDS: NAPROXEN PO SCH (09:00)
[2021-01-05] MEDS: ESOMEPRAZOLE MAG PO SCH (09:00)
[2021-01-05] MEDS: D5W 1,000 ML IV SCH ×2 (09:51→14:40)
[2021-01-05] MEDS: PANTOPRAZOLE 40 MG INJ IVP SCH (09:56)
[2021-01-05] MEDS: HYDROCORTISONE SUC 100 MG INJ IV SCH (09:56)
[2021-01-05] MEDS: TOPIRAMATE 100 MG TAB PO SCH (09:57)
[2021-01-05] MEDS: CEFTRIAXONE/SWI 1gm 1 GM/10 ML SYR IV SCH (09:58)
[2021-01-05] MEDS: LACTOBACILLUS/ACIDOPHILUS TAB PO SCH ×2 (10:04→15:41)
--- NOTE | 2021-01-05 12:11 | P.DS ---
Admission Date: 01/03/21 Discharge Date: 01/05/21 Primary Care Provider: Dr. Rosario Disposition: ROUTINE DISCHARGE Discharge Condition: FAIR Reason for Admission: Pancolitis Consultations: Nephrology - Problems (1) Pancolitis Current Visit: Yes Status: Acute (2) SLE (systemic lupus erythematosus related syndrome) Current Visit: Yes Status: Acute (3) H/O psoriatic arthritis Current Visit: Yes Status: Acute (4) Hypernatremia Current Visit: Yes Status: Acute (5) Hypotension Current Visit: Yes Status: Acute Brief History of Present Illness: 42-year-old woman with a history of hypertension, select arthritis, lupus, hypothyroidism presented to the emergency department for syncope. Patient also reported abdominal pain. EMS reported a blood pressure of 60/40. His blood pressure improved with IV fluids but was still hypotensive in the ED. Workup in the ED showed severe leukocytosis with a white cell count of 30,000. CT abdomen and pelvis demonstrated pancolitis. Patient was admitted for further management. Hospital Course: Patient admitted to the medical floor and treated with IV antibiotics. Stool studies including C. diff was negative. Stool WBC-few. Patient hydrated with IV fluid. She had hypernatremia which improved. Her blood pressure also improved but was soft with systolic ranging from 90s to the low 100s. Serum cortisol level checked to evaluate for adrenal insufficiency was normal. Other adrenocortical hormone levels are pending. Leukocytosis resolved. Patient clinically improved and tolerating diet as well as ambulating with no issues. Patient deemed clinically stable for discharge. Vital Signs/Physical Exam: Temp Pulse Resp BP Pulse Ox 97.0 F 62 18 103/57 L 100 01/05/21 08:00 01/05/21 08:00 01/05/21 08:00 01/05/21 08:00 01/05/21 08:00 General: Alert, In no apparent distress, Oriented x3 HEENT: Mucous membr. moist/pink Neck: Supple Respiratory: Clear to auscultation bilaterally Cardiovascular: No edema, Regular rate/rhythm, Normal S1 S2 Gastrointestinal: Soft and benign, Non-distended, No tenderness Musculoskeletal: No swelling, No tenderness Integumentary: No rashes Neurological: Normal strength at 5/5 x4 extr Laboratory Data at Discharge: WBC 7.00 K/uL (4.3-10.9) 01/05/21 06:04 Hgb 9.5 g/dL (12.0-15.0) L 01/05/21 06:04 Hct 28.6 % (36.0-45.0) L 01/05/21 06:04 Plt Count 271 K/uL (152-406) 01/05/21 06:04 PT 11.1 SECONDS (9.5-12.5) 01/02/21 19:52 INR 0.97 01/02/21 19:52 Sodium 148 mmol/L (136-145) H 01/05/21 06:04 Potassium 3.7 mmol/L (3.5-5.1) 01/05/21 06:04 BUN 5 mg/dL (7-18) L 01/05/21 06:04 Creatinine 0.52 mg/dL (0.55-1.3) L 01/05/21 06:04 Glucose 101 mg/dL (74-106) 01/05/21 06:04 Magnesium 2.0 mg/dL (1.8-2.4) 01/05/21 06:04 Total Bilirubin 0.2 mg/dL (0.2-1.0) 01/05/21 06:04 AST 9 U/L (15-37) L 01/05/21 06:04 ALT 21 U/L (12-78) 01/05/21 06:04 Alkaline Phosphatase 48 U/L (45-117) 01/05/21 06:04 Lipase 179 U/L (73-393) 01/02/21 19:52 Home Medications: Bupropion HCl [Wellbutrin Xl] 300 mg PO BREAKFAST 01/03/21 Cyclobenzaprine HCl [Flexeril] 5 mg PO DAILY 01/03/21 Dextroamphetamine/Amphetamine [Adderall 15 mg Tablet] 15 mg PO DAILY AT SUPPER 01/03/21 Dextroamphetamine/Amphetamine [Adderall 30 mg Tablet] 30 mg PO DAILY WITH BREAKFAST 01/03/21 Folic Acid/Vit B Complex and C [Folbee Plus Tablet] 5 mg PO DAILY 01/03/21 Hydrocodone 10/APAP 325 [[place] 10/325*] 1 tab PO Q6H PRN 01/03/21 Levothyroxine [Synthroid*] 125 mcg PO [id number] 01/03/21 Methotrexate/Pf [Rasuvo 25 mg/0.5 ml Autoinj] 50 mg SQ EVERY 7TH DAY 01/03/21 Naloxegol Oxalate [Movantik] 25 mg PO DAILY 01/03/21 Naproxen/Esomeprazole Mag [Vimovo Dr 500-20 mg Tablet] 1 tab PO BID 01/03/21 Pantoprazole [Protonix Tab*] 40 mg PO NOON 01/03/21 Ropinirole HCl [Requip*] 1 mg PO DAILY 01/03/21 Topiramate [Topamax] 200 mg PO BID 01/03/21 Calcitrol [Rocaltrol*] 0.5 mcg PO DAILY #30 cap 01/05/21 Cholecalciferol (Vitamin D3) [Vitamin D 5,000 IU Cap*] 5,000 unit PO DAILY #30 cap 01/05/21 Ciprofloxacin HCl [Cipro 500 MG Tablet] 500 mg PO BID #10 tab 01/05/21 metroNIDAZOLE [Flagyl] 500 mg PO Q8H #15 tablet 01/05/21 New Medications: Ciprofloxacin HCl [Cipro 500 MG Tablet] 500 mg PO BID #10 tab metroNIDAZOLE [Flagyl] 500 mg PO Q8H #15 tablet Calcitrol [Rocaltrol*] 0.5 mcg PO DAILY #30 cap Cholecalciferol (Vitamin D3) [Vitamin D 5,000 IU Cap*] 5,000 unit PO DAILY #30 cap Diet: AHA Activity: Ad carmela Followup: Unknown,U [Primary Care Provider] - Valentin Reed MD [ACTIVE - CAN ADMIT] - 1 Week Time spent managing pt's care (in minutes): 36
[2021-01-05 17:18] VITALS: BP 90/50; TEMP 98.5
--- NOTE | 2021-01-05 18:48 | P.PN ---
Date of Service: 01/05/21 Vital Signs Temp Pulse Resp BP Pulse Ox 98.5 F 83 17 90/50 L 99 01/05/21 16:00 01/05/21 16:00 01/05/21 16:00 01/05/21 16:00 01/05/21 16:00 Microbiology Results 01/02/21 19:52 Blood - Blood Aerobic Blood Culture - Preliminary No growth in 24 hours. 01/02/21 19:52 Blood - Blood Anaerobic Blood Culture - Final Assessment/ Plan: Nephrology No acute cardiac or pulmonary complaints. No CP or SOB. Feeling better today. She would like to go home. No acute events overnight. Vitals, medications, blood work and imaging reviewed in the chart. Blood work reviewed in the chart. Imagings Data: EXAM DESCRIPTION: CT - Chest For Pe Angio - 01/02/2021 8:49 pm CLINICAL HISTORY: syncope;SOB COMPARISON: Chest Single View dated 01/02/2021 TECHNIQUE: Dynamically enhanced 3 mm thick images of the chest were obtained during administration of approximately 150mL Isovue 370 IV contrast. Coronal and oblique MIP reconstruction images were generated and reviewed. Exam utilizes a protocol to evaluate the pulmonary arterial tree. All CT scans are performed using dose optimization technique as appropriate and may include automated exposure control or mA/KV adjustment according to patient size. FINDINGS: No pulmonary emboli are identified. The aorta as imaged shows no acute or suspicious finding. No pericardial thickening or effusion. No infiltrate or mass in the lung parenchyma. No pleural effusion or pleural thickening. No mediastinal or hilar suspicious masses. No chest wall masses or abnormal axillary lymphadenopathy. IMPRESSION: No pulmonary emboli identified. No other significant or suspicious findings. EXAM DESCRIPTION: CT - Abdomen Pelvis W Contrast - 01/02/2021 8:49 pm CLINICAL HISTORY: Abd pain;Nausea / vomiting COMPARISON: CT ABD PELVIS W CONTRAST dated 03/19/2013 TECHNIQUE: Biphasic, helical CT imaging of the abdomen and pelvis was performed following 100 ml non-ionic IV contrast. No oral contrast administered. All CT scans are performed using dose optimization technique as appropriate and may include automated exposure control or mA/KV adjustment according to patient size. FINDINGS: No suspicious findings in the lung bases. The liver, spleen, and pancreas show no suspicious findings. Cholecystectomy clips are present. No biliary tree dilatation. Symmetric renal function is seen with no hydronephrosis or suspicious renal mass. No pyelonephritis or acute parenchymal process. No bladder abnormalities. No adrenal abnormalities. Uterus is absent. No ovarian abnormality seen. A small 12 millimeter cyst present left ovary. No gastric dilatation gastric wall thickening. No dilated small bowel loops. No appendicitis findings. Colon is not dilated. There is mild wall thickening in the colon without mass. Finding is suspicious for a mild pancolitis. No free air, free fluid or inflammatory stranding. No mass or bulky lymphadenopathy. No suspicious bony findings. L2 vertebroplasty changes are present. IMPRESSION: Fluid-filled nondilated colon shows mild wall thickening throughout most of the colon. Findings consistent with a mild pancolitis. No small bowel dilatation or acute small bowel finding. No surgically emergent finding. EXAM DESCRIPTION: RAD - Chest Single View - 01/02/2021 8:01 pm CLINICAL HISTORY: syncope, low blood pressure COMPARISON: April 2008 TECHNIQUE: AP portable chest image was obtained 01/02/2021 8:01 pm . FINDINGS: Lungs are clear. Heart and vasculature are normal. No measurable pleural effusion and no pneumothorax. No acute bony abnormality seen. No acute aortic findings suspected. IMPRESSION: No acute cardiopulmonary process. Conclusions/Impression: A/P Hypernatremia -Increase IVF with D5W Hypokalemia -Replete potassium Hypocalcemia -Continue Vitamin D Hypotension -Increase IVF -IVF bolus as needed -Renin and aldosterone pending Moderate malnutrition -Advance diet as tolerated Anemia in chronic illness -Monitor H&H -Transfuse PRBC as needed Pancolitis -Continue Rocephin -Start Probiotic Case reviewed with Dr. Palacios
== END 2021-01-05 17:44 | disposition home or self-care (01) | DRG 386 ==
LOC: ER 19:09 → ERHOLD 01-03 00:58 → 2ND 01-03 01:25
PROVIDERS: ADMIT Hospitalist; ATTEND Internal Medicine
DX: K51.00 Ulcerative (chronic) pancolitis without complications (principal); E87.2 Acidosis; E87.0 Hyperosmolality and hypernatremia; E44.0 Moderate protein-calorie malnutrition; E03.9 Hypothyroidism, unspecified; I10 Essential (primary) hypertension; E87.6 Hypokalemia; M32.9 Systemic lupus erythematosus, unspecified; D63.8 Anemia in other chronic diseases classified elsewhere; E83.51 Hypocalcemia; D72.829 Elevated white blood cell count, unspecified; L40.50 Arthropathic psoriasis, unspecified; I95.9 Hypotension, unspecified; W18.11XA Fall from or off toilet without subsequent striking against object, initial encounter; Z68.23 Body mass index [BMI] 23.0-23.9, adult; Z90.710 Acquired absence of both cervix and uterus; Z79.890 Hormone replacement therapy; Z79.899 Other long term (current) drug therapy; Z90.49 Acquired absence of other specified parts of digestive tract; Z88.8 Allergy status to other drugs, medicaments and biological substances; Z20.822 Contact with and (suspected) exposure to COVID-19
CPT/HCPCS: 0240U; 36415; 70450; 71045; 71275; 72125; 74177; 80048; 80053; 80076; 80307; 81003; 82024; 82088; 82272; 82533; 82565; 83605; 83690; 83735; 83880; 84132; 84145; 84244; 84439; 84443; 84484; 85025; 85610; 85652; 86140; 86850; 86900; 86901; 87040; 87045; 87046; 87177; 87209; 87324; 87449; 89055; 93005; 99285; C9113; J0696; J1720; J2765; J3480; J7030; J7050; J7799; Q9967

== ENCOUNTER 2024-04-18 00:59 | Inpatient (IN) | payer BC ==
[2024-04-18] MEDS ORDERED: METOCLOPRAMIDE 10 MG/2mL INJ ONE (01:20)
[2024-04-18] MEDS ORDERED: ONDANSETRON 4 MG/2 ML VIAL ONE (01:20)
[2024-04-18] MEDS ORDERED: PROMETHAZINE INJ 25 MG/ML AMP ONE (01:20)
[2024-04-18] MEDS ORDERED: FAMOTIDINE 20 MG/2 ML VIAL IV ONE (01:21)
[2024-04-18] MEDS ORDERED: NA CHLORIDE 0.9% 2,000 ML ONE (01:21)
[2024-04-18] MEDS ORDERED: D5.45NS W/KCL 20MEQ 1,000 ML IV ONE (02:12)
[2024-04-18] MEDS ORDERED: ALBUMIN HUMAN 25% 100 ML IV ONE (02:12)
[2024-04-18] MEDS ORDERED: DIPHENOX/ATROP SULF 1 TAB PO ONE (02:12)
[2024-04-18] MEDS: ALBUMIN HUMAN 25% 100 ML IV ONE (02:23)
[2024-04-18 03:03] LABS: Absolute Basophils 0.1 K/uL (0-0.5); Absolute Eosinophils 0.6 K/uL (0-0.5); Absolute Lymphocytes (CBC) 3.5 K/uL (0.7-4.9); Absolute Monocytes 0.7 K/uL (0.1-1.3); Basophils % 0.3 % (0-1.3); Eosinophils % 2.5 % (0-4.4); Hematocrit 39.9 % (36.0-45.0); Hemoglobin 12.8 g/dL (12.0-15.0); Lymphocytes % 14.1 % (15.3-44.8); MCH 30.1 pg (27.0-35.0); MCHC 32.2 g/dL (32.0-36.0); MCV 93.6 fL (80-100); MPV 8.6 fL (7.6-11.3); Neutrophils % 80.1 % (41.7-73.7); Nucleated Red Blood Cells % 0.1 % (0-0); Platelets 473 thou/uL (152-406); RBC Red Blood Cell Count 4.26 M/uL (3.86-4.86); Red Cell Distribution Width 13.8 % (12.1-15.2)
[2024-04-18 03:19] LABS: Albumin 2.9 g/dL (3.4-5.0); Anion Gap 10.5 mEq/L (5.0-15.0); Bilirubin Total 0.3 mg/dL (0.2-1.0); Globulin 2.8 g/dL (2.3-3.5); Protein, Total 5.7 g/dL (6.4-8.2); Troponin High Sensitivity 4.9 pg/mL (<58.9)
[2024-04-18 03:24] LABS: Potassium 2.5 mEq/L (3.5-5.1)
[2024-04-18] MEDS ORDERED: CEFTRIAXONE 1000 MG/VIAL ONE (03:48)
[2024-04-18] MEDS ORDERED: POTASSIUM CL SA 10 MEQ TAB PO ONE (03:48)
[2024-04-18] MEDS ORDERED: METRONIDAZOLE 500mg IVPB 500 MG/100 ML BAG IV ONE (03:49)
[2024-04-18] MEDS ORDERED: NA CHLORIDE 0.9% 50 ML ONE (03:49)
[2024-04-18 03:57] LABS: Band Neutrophils 14 % (0-1); Differential Total Cells Count 100; Eosinophils 4 % (0-3); Lymphocytes 15 % (15-42); Monocytes 2 % (0-10); Reactive Lymphocytes 1 %; Segmented Neutrophils 64 % (40-80)
[2024-04-18 03:58] LABS: Blood Morphology Comment NOT SEEN (NOT SEEN); Platelet Estimate ADEQ
[2024-04-18 04:47] LABS: SARS-CoV-2 Antigen CONTROL BLUE LINE VIS/BG OK; SARS-CoV-2 Antigen Rapid Res Negative (Negative)
[2024-04-18] MEDS ORDERED: Ringers Lactate 2,000 ML IV ONE (05:07)
[2024-04-18] MEDS ORDERED: ALBUTEROL 2.5 MG/3 ML NEB SOL NEB PRN (05:09)
--- NOTE | 2024-04-18 05:09 | P.HP ---
Certification for Inpatient With expected LOS: >2 Midnights Patient will require the following post-hospital care: None Practitioner: I am a practitioner with admitting privileges, knowledge of patient current condition, hospital course, and medical plan of care. Services: Services provided to patient in accordance with Admission requirements found in Title 42 Section 412.3 of the Code of Federal Regulations Patient History Date of Service: 04/18/24 Reason for admission: Syncope History of Present Illness: 53-year-old female with past medical history of hypertension, psoriatic arthritis on consentyx, SLE, hypothyroidism, who developed sudden onset abdominal cramping at about 10 PM last night associated with profuse diarrhea, vomiting and then dizziness with syncope while in the bathroom. Patient states that she felt like passing out but she is not sure what happened until she had her son calling on her and arrival of EMS. She is unsure how long she passed out for. She states symptoms symptoms are similar to sudden onset diarrhea and syncope during hospitalization yet 3 years ago. Workup at that time shows evidence of pancolitis and patient was treated with empirical antibiotics. Patient however states she has been told she has inflammatory colitis in the past. On arrival in the ED blood pressure was low at 70/30, WBC elevated at 24,000 with 86 5% neutrophilia, BMP shows severe low potassium of 2.5, creatinine of 1.44, she has received 2 L normal saline with blood pressure in the low 90s now. She states she is taken lisinopril earlier today. Allergies propoxyphene napsylate [From Darvocet-N 100] Allergy (Mild, Verified 08/02/12 07:41) Hives/Rash Home Medications: Cyclobenzaprine HCl [Flexeril] 5 mg PO DAILY 01/03/21 Dextroamphetamine/Amphetamine [Adderall 15 mg Tablet] 15 mg PO DAILY AT SUPPER 01/03/21 Dextroamphetamine/Amphetamine [Adderall 30 mg Tablet] 30 mg PO DAILY WITH BREAKFAST 01/03/21 Folic Acid/Vit B Complex and C [Folbee Plus Tablet] 5 mg PO DAILY 01/03/21 Hydrocodone 10/APAP 325 [[place] 10/325*] 1 tab PO Q6H PRN 01/03/21 Levothyroxine [Synthroid*] 125 mcg PO [id number] 01/03/21 Methotrexate/Pf [Rasuvo 25 mg/0.5 ml Autoinj] 50 mg SQ EVERY 7TH DAY 01/03/21 Naloxegol Oxalate [Movantik] 25 mg PO DAILY 01/03/21 Naproxen/Esomeprazole Mag [Vimovo Dr 500-20 mg Tablet] 1 tab PO BID 01/03/21 Pantoprazole [Protonix Tab*] 40 mg PO NOON 01/03/21 Ropinirole HCl [Requip*] 1 mg PO DAILY 01/03/21 Topiramate [Topamax] 200 mg PO BID 01/03/21 buPROPion HCL [Wellbutrin Xl] 300 mg PO BREAKFAST 01/03/21 Calcitrol [Rocaltrol*] 0.5 mcg PO DAILY #30 cap 01/05/21 Cholecalciferol (Vitamin D3) [Vitamin D 5,000 IU Cap*] 5,000 unit PO DAILY #30 cap 01/05/21 Ciprofloxacin HCl [Cipro 500 MG Tablet] 500 mg PO BID #10 tab 01/05/21 metroNIDAZOLE [Flagyl] 500 mg PO Q8H #15 tablet 01/05/21 - Past Medical/Surgical History -: Lupus -: Psoriatic arthritis -: Colitis -: Hypothyroidism -: Hypertension -: Hysterectomy -: Cholecystectomy Psychosocial/ Personal History: Patient lives with family - Social History Smoking Status: Never smoker Alcohol use: No CD- Drugs: No Caffeine use: Yes Place of Residence: Home Review of Systems General: Weakness Gastrointestinal: Nausea, Vomiting, Abdominal Pain, Diarrhea Neurological: Weakness Physical Examination - Physical Exam General: Alert, In no apparent distress, Oriented x3, Cooperative HEENT: Atraumatic, Normocephalic Neck: Supple, 2+ carotid pulse no bruit, JVD not distended Respiratory: Clear to auscultation bilaterally, Normal air movement Cardiovascular: No edema, Normal pulses, Regular rate/rhythm, Normal S1 S2 Capillary refill: <2 Seconds Gastrointestinal: Normal bowel sounds, Soft and benign, Non-distended, No tenderness, No rebound Musculoskeletal: No clubbing, No swelling Integumentary: No rashes, No breakdown, No significant lesion Neurological: Normal speech, Normal strength at 5/5 x4 extr, Sensation intact, Cranial nerves 3-12 intact - Studies Laboratory Data (last 24 hrs) 04/18/24 04/18/24 02:09 02:09 WBC 24.90 H Hgb 12.8 Hct 39.9 Plt Count 473 H Sodium 140 Potassium 2.5 L* BUN 21 H Creatinine 1.44 H Glucose 120 H Total Bilirubin 0.3 AST 16 ALT 20 Alkaline Phosphatase 72 Lipase 60 Microbiology Data (last 24 hrs): 04/18/24 03:55 Nasopharnyx Influenza Type A Antigen Screen - Final 04/18/24 03:55 Nasopharnyx Influenza Type B Antigen Screen - Final Assessment and Plan - Plan Impression/plan Acute syncope/collapselikely due to volume loss Follow with IV fluid resuscitation Obtain carotid Doppler to rule out underlying carotid stenosis Obtain daily orthostatic vitals Admit to ICU for now Presumed recurrent pancolitisfollow CT abdomen pelvisdepending Start empirical antibiotics with Flagyl Levaquin Obtain stool for C. difficile given recent immunosuppressive use Follow-up with empirical steroid use given self-reported history of inflammatory colitis Hypotensionlow BP now, hold lisinopril Repeat 2 L lactated Ringer bolus now If the persistent low BP, consider central line and IV pressors initiation Acute sepsisfollow with empirical antibiotics and IV fluid bolus Follow WBC trend DVT prophylaxissubcutaneous Lovenox Advance directivefull code Disposition possible hospital stay for more than 48 hours. Total time spent evaluation greater than 70 minutes - Advance Directives Does patient have a Living Will: No Does patient have a Durable POA for Healthcare: No
--- NOTE | 2024-04-18 05:40 | ER ---
Nurse's Notes [facility] Name: Vaishnavi Castano Age: 53 yrs Sex: Female : 1970 Arrival Date: 04/18/2024 Time: 00:59 Bed 3 Private MD: Diagnosis: Toxic gastroenteritis and colitis;Acute gastroenteritis and colitis, hypovolemic shock, septic shock, severe sepsis, syncope and collapse Presentation: 04/18 01:56 Chief complaint: Patient states: I have some lower abd pain that started tonight I bm8 passed out while attempting to use restroom. i also have had lots of n/v/d tonight. Coronavirus screen: At this time, the client does not indicate any symptoms associated with coronavirus-19. Ebola Screen: Patient negative for fever greater than or equal to 101.5 degrees Fahrenheit, and additional compatible Ebola Virus Disease symptoms Patient denies exposure to infectious person. Patient denies travel to an Ebola-affected area in the 21 days before illness onset. No symptoms or risks identified at this time. Initial Sepsis Screen: Does the patient meet any 2 criteria?. Initial Sepsis Screen: Does the patient meet any 2 criteria? Temp <36.0*C (96.8*F)) or > 38.3*C (100.9*F). No. Patient's initial sepsis screen is negative. Does the patient have a suspected source of infection? No. Patient's initial sepsis screen is negative. Risk Assessment: Do you want to hurt yourself or someone else? Patient reports no desire to harm self or others. Onset of symptoms was April 17, 2024 at 23:57. Care prior to arrival: IV initiated. 20 GA, in the right antecubital area. 01:56 Method Of Arrival: EMS: [facility] bm8 01:56 Acuity: RYLIE 3 bm8 Triage Assessment: 02:00 General: Appears in no apparent distress. uncomfortable, Behavior is cooperative, bm8 agitated. Pain: Complains of pain in suprapubic area, right lower quadrant and left lower quadrant Pain does not radiate. Pain currently is 6 out of 10 on a pain scale. Quality of pain is described as crampy. EENT: No deficits noted. No signs and/or symptoms were reported regarding the EENT system. Neuro: Level of Consciousness is awake, alert, obeys commands, Oriented to person, place, time, situation. Cardiovascular: Capillary refill < 3 seconds Patient's skin is warm and dry. Respiratory: Airway is patent Trachea midline Respiratory effort is even, unlabored, Respiratory pattern is regular, symmetrical. GI: Abdomen is flat, non-distended, Bowel sounds hyperactive in right upper quadrant, left upper quadrant, right lower quadrant and left lower quadrant Abdomen is tender to palpation in suprapubic area, right lower quadrant and left lower quadrant Reports lower abdominal pain, cramping, diarrhea, nausea, Pain is 6 out of 10 on a pain scale. vomiting. : No signs and/or symptoms were reported regarding the genitourinary system. Derm: No signs and/or symptoms reported regarding the dermatologic system. Musculoskeletal: No deficits noted. No signs and/or symptoms reported regarding the musculoskeletal system. 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 - Infectious Disease History:: Denies. - Social history:: Smoking status: unknown. - Family history:: not pertinent. Screenin:53 [facility] ED Fall Risk Assessment (Adult) History of falling in the last 3 months, bm8 including since admission No falls in past 3 months (0 pts) Confusion or Disorientation No (0 pts) Intoxicated or Sedated No (0 pts) Impaired Gait No (0 pts) Mobility Assist Device Used No (0 pt) Altered Elimination No (0 pt) Score/Fall Risk Level 0 - 2 = Low Risk Oriented to surroundings, Maintained a safe environment, Educated pt \T\ family on fall prevention, incl call for assistance when getting out of bed, Assessed \T\ reinforced patient's understanding of fall precautions. Abuse screen: Denies threats or abuse. Nutritional screening: No deficits noted. Tuberculosis screening: No symptoms or risk factors identified. Assessment: 01:32 Reassessment: pt arrived at 0100 and immediately asked for a baljeet potty to use bm8 restroom. Pt has been on the baljeet potty since. currently awaiting permission to enter room and start triage. 03:03 Reassessment: Patient appears in no apparent distress at this time. Patient and/or bm8 family updated on plan of care and expected duration. Pain level reassessed. Patient is alert, oriented x 3, equal unlabored respirations, skin warm/dry/pink. General: Appears in no apparent distress. uncomfortable, Behavior is calm, cooperative. Pain: Complains of pain in suprapubic area, right lower quadrant and left lower quadrant Pain currently is 2 out of 10 on a pain scale. GI: Reports cramping, diarrhea. 05:56 Reassessment: Patient appears in no apparent distress at this time. No changes from bm8 previously documented assessment. Patient and/or family updated on plan of care and expected duration. Pain level reassessed. Patient is alert, oriented x 3, equal unlabored respirations, skin warm/dry/pink. Patient states feeling better. Patient states symptoms have improved. Vital Signs: 01:56 BP 73 / 51; Pulse 86; Resp 20; Temp 94; Pulse Ox 100% ; Weight 68.04 kg; Height 5 ft. 7 bm8 in. ; Pain 6/10; 02:53 BP 73 / 43; Pulse 77; Resp 18; Temp 94.1; Pulse Ox 100% ; Pain 4/10; bm8 05:14 BP 101 / 67; Pulse 82; Resp 12; Pulse Ox 100% ; Pain 4/10; bm8 05:55 BP 101 / 73; Pulse 81; Resp 16; Temp 97.7; Pulse Ox 100% ; Pain 2/10; bm8 01:56 Body Mass Index 23.49 (68.04 kg, 170.18 cm) bm8 01:56 Pain Scale: Adult bm8 02:53 Pain Scale: Adult bm8 05:14 Pain Scale: Adult bm8 05:55 Pain Scale: Adult bm8 Arnoldo Coma Score: 02:53 Eye Response: spontaneous(4). Motor Response: obeys commands(6). Verbal Response: bm8 oriented(5). Total: 15. 04:29 Eye Response: spontaneous(4). Motor Response: obeys commands(6). Verbal Response: sp4 oriented(5). Total: 15. 05:14 Eye Response: spontaneous(4). Motor Response: obeys commands(6). Verbal Response: bm8 oriented(5). Total: 15. 05:56 Eye Response: spontaneous(4). Motor Response: obeys commands(6). Verbal Response: bm8 oriented(5). Total: 15. ED Course: 01:00 Patient arrived in ED. [email or web address] 01:06 Bill Elam MD is Attending Physician. sp4 01:13 Rafael Stuart, RN is Primary Nurse. bm8 02:00 Triage completed. bm8 02:00 Arm band placed on right wrist. bm8 02:52 Initial lab(s) drawn, by me, sent to lab. EKG done, by ED staff, reviewed by Bill Elam MD. Maintain EMS IV. Dressing intact. Good blood return noted. Site clean \T\ dry. Gauge \T\ site: 20 LAC. IV was discontinued by the patient. with fluids infusing freely, with good blood return, Changed dressing on left antecubital Flushed with 5 ml normal saline. 02:53 Patient has correct armband on for positive identification. Bed in low position. Call bm8 light in reach. Side rails up X2. Adult w/ patient. Provided Education on: need for admission. Client placed on continuous cardiac and pulse oximetry monitoring. NIBP monitoring applied. monitoring coordinator on. Pulse ox on. NIBP on. Door closed. Noise minimized. Warm blanket given. Verbal reassurance given. 02:53 Thermoregulation: Shine blanket applied. bm8 04:19 Assisted to bedside commode. bm8 04:37 CT Chest, Abdomen, Pelvis - W/Contrast In Process Unspecified. EDMS 04:37 CT Head Brain wo Cont In Process Unspecified. EDMS 05:34 Assisted provider with central line placement. Set up central line tray. Triple lumen bm8 line placed in right internal jugular. Line placed by Bill Elma MD Placement verified by blood return, Patient tolerated well. Before procedure, did Practitioner(s) obtain informed consent? Yes. Patient \T\ family education about procedure, CLABSI prevention and S/S of infection? Yes. Time-out/Briefing performed prior to start of procedure? Yes. Was handwashing/sanitizing done immediately prior to procedure? Yes. Was patient positioned to in a way to prevent air embolism? Yes. Was procedure site sterilized? Yes, with chlorhexidine. Was the site allowed to dry? Yes. Was local anesthetic and/or sedation utilized? Yes. During the procedure, did the Practitioner(s) maintain a sterile field? Yes. Were unused ports clamped during insertion? Yes. Was a 2nd qualified MD obtained after 3 unsuccessful insertion attempts? No. Was blood aspirated from each lumen? Yes. After the procedure, did the Practitioner(s) clean the site and apply a sterile dressing? Yes. 05:35 Aruna Gil MD is Hospitalizing Provider. sp4 05:56 Patient admitted, IV remains in place. bm8 06:03 Attending Physician role handed off by Bill Elam MD [facility] 06:03 Nehemiah Holliday MD is Attending Physician. taylor 06:04 Inserted saline lock: 22 gauge in right hand, using aseptic technique. Blood collected. bm8 06:06 Attending Physician role handed off by Nehemiah Holliday MD sp 06:06 Bill Elam MD is Attending Physician. sp4 Administered Medications: 02:25 Drug: NS 0.9% IV 1000 ml IV at 1 bolus Per protocol; 1000 mL bolus Route: IV; Rate: 1 bm8 bolus; Site: left antecubital; 05:53 Follow up: Response: No adverse reaction; IV Status: Completed infusion; IV Intake: bm8 1000ml 02:25 Drug: Famotidine IVP 20 mg IVP once; dilute with 10 mL 0.9% NaCl; give over 2 minutes bm8 Route: IVP; Site: left antecubital; 03:11 Follow up: Response: No adverse reaction bm8 02:25 Drug: Ondansetron IVP 4 mg IVP once; over 2 minutes Route: IVP; Site: left antecubital; bm8 03:12 Follow up: Response: No adverse reaction bm8 02:25 Drug: metoCLOPramide IVP 10 mg IVP once; over 1 to 2 minutes Route: IVP; Site: left bm8 antecubital; 03:11 Follow up: Response: No adverse reaction bm8 02:25 Drug: Promethazine IM 25 mg IM once Route: IM; Site: left deltoid; bm8 03:11 Follow up: Response: No adverse reaction bm8 02:25 Drug: NS 0.9% IV 1000 ml IV at 1 bolus Per protocol; 1000 mL bolus Route: IV; Rate: 1 bm8 bolus; Site: left antecubital; 03:11 Follow up: IV Status: Completed infusion; IV Intake: 1000ml bm8 02:34 Drug: Diphenoxylate-Atropine PO 2 tabs PO once Route: PO; bm8 03:11 Follow up: Response: No adverse reaction bm8 02:34 Drug: Albumin IVPB 25 grams 100 ml IVPB once; (Note: Albumin 25% concentration) Volume: bm8 100 ml; Route: IVPB; Site: left antecubital; 05:52 Follow up: Response: No adverse reaction; IV Status: Completed infusion; IV Intake: bm8 100ml 03:11 Drug: D5-1/2 NS with KCl IV 20 mEq/L 1000 ml IV at 100 ml/hr continuous Route: IV; bm8 Rate: 100 ml/hr; Site: left antecubital; 05:52 Follow up: Response: No adverse reaction; IV Status: Infusion continued upon admission bm8 03:29 Drug: Albumin IVPB 25 grams 100 ml IVPB once; (Note: Albumin 25% concentration) Volume: bm8 100 ml; Route: IVPB; Site: left antecubital; 05:53 Follow up: Response: No adverse reaction; IV Status: Completed infusion; IV Intake: bm8 100ml 04:00 Drug: Rocephin - Rocephin (cefTRIAXone) IVPB 1 grams IVPB once over 30 mins; (mix in 50 bm8 mL NS) Route: IVPB; Infused Over: 30 mins; Site: right hand; 05:52 Follow up: Response: No adverse reaction; IV Status: Completed infusion; IV Intake: [id number] 05:10 Drug: Potassium Chloride PO 40 mEq PO once Route: PO; bm8 05:52 Follow up: Response: No adverse reaction bm8 05:50 Drug: Lactated Ringers Solution IV 1000 ml IV at 1000 bolus continuous {Note: central bm8 line blue.} Route: IV; Rate: 1000 bolus; Site: Other; 05:51 Follow up: Response: No adverse reaction; IV Status: Infusion continued upon admission bm8 05:50 Drug: Lactated Ringers Solution IV 1000 ml IV at 1000 bolus continuous {Note: central bm8 line blue.} Route: IV; Rate: 1000 bolus; Site: Other; 05:50 Follow up: Response: No adverse reaction; IV Status: Infusion continued upon admission bm8 05:51 Drug: metroNIDAZOLE IVPB 500 mg 100 ml IVPB at 200 ml/hr once over 30 mins Volume: 100 bm8 ml; Route: IVPB; Rate: 200 ml/hr; Infused Over: 30 mins; Site: left antecubital; 05:51 Follow up: Response: No adverse reaction; IV Status: Infusion continued upon admission bm8 Medication: 02:53 VIS not applicable for this client. bm8 Intake: 03:11 IV: 1000ml; Total: 1000ml. bm8 05:52 IV: 50ml; Total: 1050ml. bm8 05:52 IV: 100ml; Total: 1150ml. bm8 05:53 IV: 100ml; Total: 1250ml. bm8 05:53 IV: 1000ml; Total: 2250ml. bm8 Outcome: 05:39 Decision to Hospitalize by Provider. sp4 05:56 Admitted to ICU accompanied by nurse, via stretcher, room 1, on monitor, with chart, bm8 Report called to charli gomez Admitted to ICU accompanied by nurse, via stretcher, room 1, on monitor, with chart, Report called to charli gomez Admitted to ICU accompanied by nurse, via stretcher, room 1, on monitor, with chart, Report called to patricia, rn Admitted to ICU accompanied by nurse, via stretcher, room 1, on monitor, with chart, Report called to patricia rn 05:56 Condition: stable 05:56 Instructed on the need for admit, 06:07 Patient left the ED. bm8 Signatures: Dispatcher [employer] EDMS Nehemiah Holliday MD MD cha Jeffries, Jennifer jj6 Potepalov, Sergey, MD MD sp4 Rafael Stuart, CHARLI RN bm8 Corrections: (The following items were deleted from the chart) 02:57 02:53 BP 73 / 43; Pulse 77bpm; Resp 18bpm; Pulse Ox 100%; Pain 4/10, Adult; bm8 bm8 05:37 02:52 No provider procedures requiring assistance completed. bm8 bm8 05:56 03:03 BP 101 / 73; Pulse 81bpm; Resp 16bpm; Pulse Ox 100%; Temp 97.7F; Pain 2/10, bm8 Adult; 8 05:56 03:03 GCS: 15, bm8 bm8 06:07 05:56 Admitted to ICU accompanied by nurse, via stretcher, room 1, on monitor, with [facility] chart, [facility]
--- NOTE | 2024-04-18 05:40 | EDPHYS ---
Physician Documentation [facility] Name: Vaishnavi Castano Age: 53 yrs Sex: Female : 1970 Arrival Date: 04/18/2024 Time: 00:59 Bed 3 Private MD: ED Physician Bill Elam HPI: 04/18 01:06 This 53 yrs old Female presents to ER via Unassigned with complaints of Fall sp4 Injury. 04:23 53-year-old female with a history of pancolitis, systemic lupus, psoriatic arthritis, sp4 presents with acute abdominal pain nausea vomiting diarrhea and hypotension. Also patient reportedly collapsed in the bathroom when she was vomiting. On arrival patient is pale hypotensive and ill-appearing. Patient's last admission 01/03/2021 for pancolitis, systemic lupus, psoriatic arthritis, hyponatremia, hypotension. Patient's medications include Wellbutrin, Flexeril, Adderall, folic acid, hydrocodone as needed, Synthroid, methotrexate, naloxone naproxen, Protonix, ropinirole, topiramate, cholecalciferol, . 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 - Infectious Disease History:: Denies. - Social history:: Smoking status: unknown. - Family history:: not pertinent. ROS: 04:23 Constitutional: Positive nausea vomiting diarrhea positive passing out. sp4 04:23 All other systems are negative, Exam: 04:29 Constitutional: This is a well developed, ill-appearing female, pale, hypothermic, sp4 hypotensive on arrival. Actively vomiting. Profuse diarrhea on arrival Head/Face: Normocephalic, atraumatic. Eyes: Pupils equal round and reactive to light, extra-ocular motions intact. Lids and lashes normal. Conjunctiva and sclera are not injected. Cornea within normal limits. Periorbital areas with no swelling, redness, or edema. ENT: Nares patent. No nasal discharge, no septal abnormalities noted. Tympanic membranes are normal and external auditory canals are clear. Oropharynx with no redness, swelling, or masses, exudates, or evidence of obstruction, uvula midline. Mucous membranes moist. Neck: Trachea midline, no thyromegaly or masses palpated, and no cervical lymphadenopathy. Supple, full range of motion without nuchal rigidity, or vertebral point tenderness. Chest/axilla: Normal chest wall appearance and motion. Nontender with no deformity. No lesions are appreciated. Cardiovascular: Regular rate and rhythm with a normal S1 and S2. No gallops, murmurs, or rubs. Normal PMI, no JVD. No pulse deficits. There is generalized pallor Respiratory: Lungs have equal breath sounds bilaterally, clear to auscultation and percussion. No rales, rhonchi or wheezes noted. No increased work of breathing, no retractions or nasal flaring. Abdomen/GI: Soft, with normal bowel sounds. No distension or tympany. No guarding or rebound. No evidence of tenderness throughout. Back: No spinal tenderness. No costovertebral tenderness. Skin: Warm, dry with normal turgor. Pale skin with no rashes, no lesions, and no evidence of cellulitis. MS/ Extremity: Pulses equal, no cyanosis. Neurovascular intact. Full, normal range of motion. Neuro: Awake and alert, GCS 15, oriented to person, place, time, and situation. Cranial nerves II-XII grossly intact. Motor strength 5/5 in all extremities. Sensory grossly intact. Psych: Awake, alert, with orientation to person, place and time. Behavior, mood, and affect are within normal limits 06:08 ECG was reviewed by the Attending Physician. EKG at 0 145 reveals normal sinus rhythm, sp4 rate 92, Vital Signs: 01:56 BP 73 / 51; Pulse 86; Resp 20; Temp 94; Pulse Ox 100% ; Weight 68.04 kg; Height 5 ft. 7 bm8 in. ; Pain 6/10; 02:53 BP 73 / 43; Pulse 77; Resp 18; Temp 94.1; Pulse Ox 100% ; Pain 4/10; bm8 05:14 BP 101 / 67; Pulse 82; Resp 12; Pulse Ox 100% ; Pain 4/10; bm8 05:55 BP 101 / 73; Pulse 81; Resp 16; Temp 97.7; Pulse Ox 100% ; Pain 2/10; bm8 01:56 Body Mass Index 23.49 (68.04 kg, 170.18 cm) bm8 01:56 Pain Scale: Adult bm8 02:53 Pain Scale: Adult bm8 05:14 Pain Scale: Adult bm8 05:55 Pain Scale: Adult bm8 Arnoldo Coma Score: 02:53 Eye Response: spontaneous(4). Motor Response: obeys commands(6). Verbal Response: bm8 oriented(5). Total: 15. 04:29 Eye Response: spontaneous(4). Motor Response: obeys commands(6). Verbal Response: sp4 oriented(5). Total: 15. 05:14 Eye Response: spontaneous(4). Motor Response: obeys commands(6). Verbal Response: bm8 oriented(5). Total: 15. 05:56 Eye Response: spontaneous(4). Motor Response: obeys commands(6). Verbal Response: bm8 oriented(5). Total: 15. Procedures: 05:33 Central Line: the site was prepped with in sterile fashion, Hibiclens , a triple lumen sp4 catheter was inserted, in the right internal jugular vein, in 1 attempts. placement was verified, by CXR, by blood return, Ultrasound-guided central line, the site was dressed with 4X4s, Tegaderm, using sterile technique, the patient tolerated the procedure, well, Central line placed fluid resuscitation. MDM: 01:08 Patient medically screened. sp4 05:39 Differential diagnosis: closed head injury, contusion, fracture, multiple trauma. Data sp4 reviewed: vital signs, nurses notes, EMS record, old medical records, lab test result(s), cardiac enzymes, CBC, electrolytes, hepatic panel, urinalysis, EKG, radiologic studies, CT scan, plain films. Consideration of Admission/Observation Patient was admitted/placed on observation. Escalation of care including admission/observation considered. Management of patient was discussed with the following: Hospitalist: Aruna SIBLEY . ED course: Central line was placed for resuscitation. Blood pressure is improving right now. Patient still hypothermic. Patient will be admitted to ICU for additional management and resuscitation.,. 05:41 ED course: EXAM: CT Head/Brain Without Contrast HISTORY: Syncope COMPARISON: CT 4 Head/Brain Without Contrast 01/02/2021 TECHNIQUE: Head/brain axial images acquired without contrast. Coronal and sagittal reformats created. Exam performed according to departmental dose-optimization program which includes automated exposure control, adjustment of mA and/or kV according to patient size, and/or use of iterative reconstruction technique. FINDINGS: No midline shift, mass effect, intracranial hemorrhage, or hydrocephalus. Brain parenchyma unremarkable. Paranasal sinuses clear. Mastoid air cells clear. No skull fracture or significant skull lesion. IMPRESSION: Unremarkable CT head/brain without contrast. . 06:07 ED course: IMPRESSION: CT CHEST: 1. No evidence of acute intrathoracic disease. CT SCAN sp4 ABDOMEN AND PELVIS: 1. No evidence of acute intra-abdominal or intrapelvic pathology. 2. There are multiple distended fluid-filled loops of colon which are nonspecific but can be due to enteritis or other inflammatory bowel disease. This finding is similar when compared to the prior study. There may be very mild colonic wall thickening involving the transverse colon. 3. Status post cholecystectomy with very mild prominence of the intrahepatic and extrahepatic ducts which is likely physiologic in nature following cholecystectomy. 4. Prior hysterectomy. 5. Prior cement augmentation of L2. Electronically signed by: Ping Milner DO 04/18/2024 05:50 AM CDT RP. 04/18 01:07 Order name: CBC with Diff; Complete Time: 04:21 [facility] 04/18 01:07 Order name: CMP [facility] 04/18 01:07 Order name: Lipase [facility] 04/18 01:07 Order name: Urinalysis w/ reflexes [facility] 04/18 01:08 Order name: Troponin High Sensitivity [facility] 04/18 03:09 Order name: Manual Differential; Complete Time: 04:21 EDMS 04/18 03:26 Order name: SARS RAPID; Complete Time: 06:00 [facility] 04/18 03:26 Order name: Influenza Screen (a \T\ B); Complete Time: 06:00 [facility] 04/18 03:27 Order name: Blood Culture Adult (2) [facility] 04/18 03:27 Order name: Lactate w/ 2H reflex if indic.; Complete Time: 06:00 [facility] 04/18 05:16 Order name: C.difficile GDH Ag EDMS 04/18 05:16 Order name: UR CREAT EDMS 04/18 05:16 Order name: UR SODIUM EDMS 04/18 05:16 Order name: CBC with Automated Diff EDMS 04/18 05:16 Order name: CBC with Automated Diff EDMS 04/18 05:16 Order name: Comprehensive Metabolic Panel EDMS 04/18 05:16 Order name: Comprehensive Metabolic Panel EDMS 04/18 05:16 Order name: Creatine Phosphokinase EDMS 04/18 05:16 Order name: Creatine Phosphokinase EDMS 04/18 05:16 Order name: Creatine Phosphokinase EDMS 04/18 05:16 Order name: Creatine Phosphokinase EDMS 04/18 05:16 Order name: Lipid Profile EDMS 04/18 05:16 Order name: Lipid Profile EDMS 04/18 05:16 Order name: Liver (Hepatic) Function EDMS 04/18 05:16 Order name: Liver (Hepatic) Function EDMS 04/18 05:16 Order name: Ova and Parasites EDMS 04/18 05:28 Order name: Magnesium EDMS 04/18 05:28 Order name: Thyroid Stimulating Hormone EDMS 04/18 06:01 Order name: Lactate w/ 2H reflex if indic. EDMS 04/18 01:08 Order name: CT Chest, Abdomen, Pelvis - W/Contrast [facility] 04/18 01:08 Order name: CT Head Brain wo Cont 4 04/18 05:16 Order name: Carotid Artery Bilateral EDMS 04/18 05:32 Order name: Chest Single View XRAY 4 04/18 01:08 Order name: EKG; Complete Time: 01: 4 04/18 01:07 Order name: IV Saline Lock; Complete Time: : 4 04/18 01:07 Order name: Labs collected and sent; Complete Time: 02: 4 04/18 01:08 Order name: EKG - Nurse/Tech; Complete Time: : sp EC:08 Rate is 92 beats/min. Rhythm is regular, Normal Sinus Rhythm. QRS [place] is Normal. [place] sp4 interval is normal. QRS interval is normal. QT interval is normal. No Q waves. T waves are Normal. No ST changes noted. Interpreted by me. Reviewed by me. Administered Medications: :25 Drug: NS 0.9% IV 1000 ml IV at 1 bolus Per protocol; 1000 mL bolus Route: IV; Rate: 1 bm8 bolus; Site: left antecubital; 05:53 Follow up: Response: No adverse reaction; IV Status: Completed infusion; IV Intake: bm8 1000ml 02:25 Drug: Famotidine IVP 20 mg IVP once; dilute with 10 mL 0.9% NaCl; give over 2 minutes bm8 Route: IVP; Site: left antecubital; 03:11 Follow up: Response: No adverse reaction bm8 02:25 Drug: Ondansetron IVP 4 mg IVP once; over 2 minutes Route: IVP; Site: left antecubital; bm8 03:12 Follow up: Response: No adverse reaction bm8 02:25 Drug: metoCLOPramide IVP 10 mg IVP once; over 1 to 2 minutes Route: IVP; Site: left bm8 antecubital; 03:11 Follow up: Response: No adverse reaction bm8 02:25 Drug: Promethazine IM 25 mg IM once Route: IM; Site: left deltoid; bm8 03:11 Follow up: Response: No adverse reaction bm8 02:25 Drug: NS 0.9% IV 1000 ml IV at 1 bolus Per protocol; 1000 mL bolus Route: IV; Rate: 1 bm8 bolus; Site: left antecubital; 03:11 Follow up: IV Status: Completed infusion; IV Intake: 1000ml bm8 02:34 Drug: Diphenoxylate-Atropine PO 2 tabs PO once Route: PO; bm8 03:11 Follow up: Response: No adverse reaction bm8 02:34 Drug: Albumin IVPB 25 grams 100 ml IVPB once; (Note: Albumin 25% concentration) Volume: bm8 100 ml; Route: IVPB; Site: left antecubital; 05:52 Follow up: Response: No adverse reaction; IV Status: Completed infusion; IV Intake: bm8 100ml 03:11 Drug: D5-1/2 NS with KCl IV 20 mEq/L 1000 ml IV at 100 ml/hr continuous Route: IV; bm8 Rate: 100 ml/hr; Site: left antecubital; 05:52 Follow up: Response: No adverse reaction; IV Status: Infusion continued upon admission bm8 03:29 Drug: Albumin IVPB 25 grams 100 ml IVPB once; (Note: Albumin 25% concentration) Volume: bm8 100 ml; Route: IVPB; Site: left antecubital; 05:53 Follow up: Response: No adverse reaction; IV Status: Completed infusion; IV Intake: bm8 100ml 04:00 Drug: Rocephin - Rocephin (cefTRIAXone) IVPB 1 grams IVPB once over 30 mins; (mix in 50 bm8 mL NS) Route: IVPB; Infused Over: 30 mins; Site: right hand; 05:52 Follow up: Response: No adverse reaction; IV Status: Completed infusion; IV Intake: [id number] 05:10 Drug: Potassium Chloride PO 40 mEq PO once Route: PO; bm8 05:52 Follow up: Response: No adverse reaction bm8 05:50 Drug: Lactated Ringers Solution IV 1000 ml IV at 1000 bolus continuous {Note: central bm8 line blue.} Route: IV; Rate: 1000 bolus; Site: Other; 05:51 Follow up: Response: No adverse reaction; IV Status: Infusion continued upon admission bm8 05:50 Drug: Lactated Ringers Solution IV 1000 ml IV at 1000 bolus continuous {Note: central bm8 line blue.} Route: IV; Rate: 1000 bolus; Site: Other; 05:50 Follow up: Response: No adverse reaction; IV Status: Infusion continued upon admission bm8 05:51 Drug: metroNIDAZOLE IVPB 500 mg 100 ml IVPB at 200 ml/hr once over 30 mins Volume: 100 bm8 ml; Route: IVPB; Rate: 200 ml/hr; Infused Over: 30 mins; Site: left antecubital; 05:51 Follow up: Response: No adverse reaction; IV Status: Infusion continued upon admission bm8 Disposition Summary: 04/18/24 05:39 Hospitalization Ordered Notes: Hospitalization Status: Inpatient Admission sp4 Provider: Aruna Gil sp4 Condition: Stable sp4 Problem: new sp4 Symptoms: have improved sp4 Bed/Room Type: Standard sp4 Location: Intensive Care Unit(04/18/24 05:40) lg3 Room Assignment: 1-(04/18/24 05:40) lg3 Diagnosis - Toxic gastroenteritis and colitis sp4 - Acute gastroenteritis and colitis, hypovolemic shock, septic shock, severe sepsis, sp4 syncope and collapse Forms: - Medication Reconciliation Form sp4 - SBAR form sp4 - Leadership Thank You Letter sp4 Critical care time excluding procedures: 05:34 Critical care time: Bedside Care: 45 minutes, Consultation: 12 minutes, Family sp4 Intervention: 12 minutes. Total time: 69 minutes Signatures: Dispatcher [employer] EDMS Regla Bruce, RN RN lg3 Bill Elam MD MD sp4 Rafael Sutart, RN RN bm8 Corrections: (The following items were deleted from the chart) 01:07 01:07 CBC+H.LAB.BRZ ordered. EDMS EDMS 01:07 01:07 COMPREHENSIVE METABOLIC PANEL+C.LAB.BRZ ordered. EDMS EDMS 01:07 01:07 LIPASE+C.LAB.BRZ ordered. EDMS EDMS 01:07 01:07 Urinalysis+U.LAB.BRZ ordered. EDMS EDMS 01:08 01:08 Chest Abdomen Pelvis W Con+CT.RAD.BRZ ordered. EDMS EDMS 01:08 01:08 Head Brain Wo Cont+CT.RAD.BRZ ordered. EDMS EDMS 05:27 05:16 Magnesium ordered. EDMS EDMS 05:28 05:16 Thyroid Stimulating Hormone ordered. EDMS EDMS 05:40 05:39 Telemetry/MedSurg (Inpatient) sp4 lg3 05:40 05:39 sp4 lg3
[2024-04-18] MEDS: Levofloxacin500mg IV 500 MG/100 ML BAG IV SCH (06:00)
[2024-04-18 06:12] LABS: Magnesium 1.9 mg/dL (1.6-2.4)
[2024-04-18] MEDS: Ringers Lactate 1,000 ML IV SCH (07:53)
[2024-04-18] MEDS: HYDROCORTISONE SUC 100 MG INJ IV SCH (07:53)
[2024-04-18] MEDS: METRONIDAZOLE 500mg IVPB 500 MG/100 ML BAG IV SCH (07:53)
[2024-04-18] MEDS: Levofloxacin500mg IV 500 MG/100 ML BAG IV ONE (07:53)
--- NOTE | 2024-04-18 07:58 | RAD REPORT ---
EXAM DESCRIPTION: US - CP - 04/18/2024 5:48 am CLINICAL HISTORY: cva COMPARISON: Head C Spine Mpr Wo Con dated 01/02/2021 TECHNIQUE: Real-time sonographic grayscale, color duplex, and spectral wave Doppler evaluation of th e left carotid system was performed. FINDINGS: Normal high resistance waveforms are noted in bilateral external carotid artery. The commo n carotid artery and internal carotid arteries show normal low resistance waveforms. No significant plaque formation is seen. Peak systolic velocity less than 125 cm/ sec. ICA/CCA peak systolic ratio less than 2.0 bilaterally. Antegrade flow seen in the left vertebral artery. The right carotid system was not evaluated IMPRESSION: No significant atherosclerotic changes noted. No evidence of a hemodynamically significant stenosis of the left internal carotid artery. Evaluation of carotid artery stenosis, if any, is reported based on consensus recommendations of the Society of Radiologists in Ultrasound (Cornelio et al., Radiology, 2003)
--- NOTE | 2024-04-18 08:40 | P.CNS ---
Date of Consult: 04/18/24 Reason for Consult: Septic shock Chief Complaint: Syncope History of Present Illness: Patient is 53 years of age with history of hypertension psoriasis mated with sudden onset of abdominal pain diarrhea dizziness currently she had a syncopal spell and was admitted found to be hypotensive with elevated white count and evidence of colitis on the CAT scan of the abdomen this happened all of a sudden currently doing better Patient is also severely hypothyroid apparently ran out of her medication 2 weeks ago Allergies propoxyphene napsylate [From DarInbiomotiont-N 100] Allergy (Mild, Verified 08/02/12 07:41) Hives/Rash Home Medications: Cyclobenzaprine HCl [Flexeril] 5 mg PO DAILY 01/03/21 Dextroamphetamine/Amphetamine [Adderall 15 mg Tablet] 15 mg PO DAILY AT SUPPER 01/03/21 Dextroamphetamine/Amphetamine [Adderall 30 mg Tablet] 30 mg PO DAILY WITH BREAKFAST 01/03/21 Folic Acid/Vit B Complex and C [Folbee Plus Tablet] 5 mg PO DAILY 01/03/21 Hydrocodone 10/APAP 325 [[place] 10/325*] 1 tab PO Q6H PRN 01/03/21 Levothyroxine [Synthroid*] 125 mcg PO [id number] 01/03/21 Methotrexate/Pf [Rasuvo 25 mg/0.5 ml Autoinj] 50 mg SQ EVERY 7TH DAY 01/03/21 Naloxegol Oxalate [Movantik] 25 mg PO DAILY 01/03/21 Naproxen/Esomeprazole Mag [Vimovo Dr 500-20 mg Tablet] 1 tab PO BID 01/03/21 Pantoprazole [Protonix Tab*] 40 mg PO NOON 01/03/21 Ropinirole HCl [Requip*] 1 mg PO DAILY 01/03/21 Topiramate [Topamax] 200 mg PO BID 01/03/21 buPROPion HCL [Wellbutrin Xl] 300 mg PO BREAKFAST 01/03/21 Calcitrol [Rocaltrol*] 0.5 mcg PO DAILY #30 cap 01/05/21 Cholecalciferol (Vitamin D3) [Vitamin D 5,000 IU Cap*] 5,000 unit PO DAILY #30 cap 01/05/21 Ciprofloxacin HCl [Cipro 500 MG Tablet] 500 mg PO BID #10 tab 01/05/21 metroNIDAZOLE [Flagyl] 500 mg PO Q8H #15 tablet 01/05/21 - Past Medical/Surgical History -: Lupus -: Psoriatic arthritis -: Colitis -: Hypothyroidism -: Hypertension -: Reynauds -: Tan -: Hysterectomy -: Cholecystectomy Psychosocial/ Personal History: Patient lives with family - Family History Father Medical History: Cancer Mother Medical History: Lung disease - Social History Smoking Status: Unknown if ever smoked Alcohol use: No CD- Drugs: No Caffeine use: Yes Place of Residence: Home Review of Systems General: Weakness Gastrointestinal: Nausea, Abdominal Pain Physical Examination Temp Pulse Resp BP Pulse Ox 97 F 78 14 99/76 100 04/18/24 06:30 04/18/24 06:30 04/18/24 06:30 04/18/24 06:30 04/18/24 06:30 General: Alert, In no apparent distress, Oriented x3 Neck: Supple Respiratory: Clear to auscultation bilaterally Cardiovascular: No edema, Regular rate/rhythm, Normal S1 S2 Gastrointestinal: Hypoactive, Tenderness (Mild deep tenderness in the suprapubic region) Musculoskeletal: No clubbing, No swelling, No contractures Laboratory Data (last 24 hrs) 04/18/24 04/18/24 02:09 02:09 WBC 24.90 H Hgb 12.8 Hct 39.9 Plt Count 473 H Sodium 140 Potassium 2.5 L* BUN 21 H Creatinine 1.44 H Glucose 120 H Magnesium 1.9 Total Bilirubin 0.3 AST 16 ALT 20 Alkaline Phosphatase 72 Lipase 60 - Problems (1) Hypotension Current Visit: No Status: Acute Plan: Patient is 53 years of age admitted with sudden onset of diarrhea hypotension nonspecific changes on CT scan multiple air-fluid levels in the colon white count elevated renal insufficiency (2) Hypothyroidism Current Visit: Yes Status: Acute Plan: Severe TSH is significantly elevated started on IV Synthroid Qualifiers: Hypothyroidism type: unspecified Qualified Code(s): E03.9 - Hypothyroidism, unspecified
[2024-04-18] MEDS: ONDANSETRON 4 MG/2 ML VIAL IV PRN (09:51)
[2024-04-18] MEDS: LEVOTHYROXINE SODIUM 100 MCG VIAL IV SCH (09:51)
[2024-04-18] MEDS: Oxycodone HCl/Acetaminophen 5/325 MG TAB PO PRN (09:51)
[2024-04-18 10:15] LABS: Absolute Lymphocytes (CBC) 0.8 K/uL (0.7-4.9); Absolute Monocytes 0.4 K/uL (0.1-1.3); Absolute Neutrophil 14.7 K/uL (1.8-8.0); Hemoglobin 9.5 g/dL (12.0-15.0); Lymphocytes % 4.8 % (15.3-44.8); MCH 30.5 pg (27.0-35.0); MCV 92.4 fL (80-100); MPV 7.4 fL (7.6-11.3); Monocytes % 2.7 % (3.3-12.3); Neutrophils % 92.5 % (41.7-73.7); Platelets 253 thou/uL (152-406); RBC Red Blood Cell Count 3.13 M/uL (3.86-4.86); Red Cell Distribution Width 13.3 % (12.1-15.2)
[2024-04-18 10:59] LABS: C.diff Antigen/Toxin Ag neg : Tox neg (NEG : NEG); CDIFF INTERNAL NEG CONTROL White Background (WHITE BKGD); STOOL CONSISTENCY Liquid/Semi-Solid
--- NOTE | 2024-04-18 10:59 | P.CNS ---
Date of Consult: 04/18/24 Reason for Consult: DEXTER Requesting Physician: Trell Billy Chief Complaint: Syncope History of Present Illness: 53-year-old female with past medical history of hypertension, psoriatic arthritis on consentyx, SLE, hypothyroidism, who developed sudden onset abdominal cramping at about 10 PM last night associated with profuse diarrhea, vomiting and then dizziness with syncope while in the bathroom. Patient states that she felt like passing out but she is not sure what happened until she had her son calling on her and arrival of EMS. She is unsure how long she passed out for. She states symptoms symptoms are similar to sudden onset diarrhea and syncope during hospitalization yet 3 years ago. Workup at that time shows evidence of pancolitis and patient was treated with empirical antibiotics. Patient however states she has been told she has inflammatory colitis in the past. [id number] 01:06 This 53 yrs old Female presents to ER via Unassigned with complaints of Fall sp4 Injury. 04:23 53-year-old female with a history of pancolitis, systemic lupus, psoriatic arthritis, sp4 presents with acute abdominal pain nausea vomiting diarrhea and hypotension. Also patient reportedly collapsed in the bathroom when she was vomiting. On arrival patient is pale hypotensive and ill-appearing. Patient's last admission 01/03/2021 for pancolitis, systemic lupus, psoriatic arthritis, hyponatremia, hypotension. Patient's medications include Wellbutrin, Flexeril, Adderall, folic acid, hydrocodone as needed, Synthroid, methotrexate, naloxone naproxen, Protonix, ropinirole, topiramate, cholecalciferol, . Allergies propoxyphene napsylate [From Darvocet-N 100] Allergy (Mild, Verified 08/02/12 07:41) Hives/Rash Home medications list reviewed: Yes Home Medications: Cyclobenzaprine HCl [Flexeril] 5 mg PO DAILY 01/03/21 Dextroamphetamine/Amphetamine [Adderall 15 mg Tablet] 15 mg PO DAILY AT SUPPER 01/03/21 Dextroamphetamine/Amphetamine [Adderall 30 mg Tablet] 30 mg PO DAILY WITH BREAKFAST 01/03/21 Folic Acid/Vit B Complex and C [Folbee Plus Tablet] 5 mg PO DAILY 01/03/21 Hydrocodone 10/APAP 325 [[place] 10/325*] 1 tab PO Q6H PRN 01/03/21 Levothyroxine [Synthroid*] 125 mcg PO [id number] 01/03/21 Methotrexate/Pf [Rasuvo 25 mg/0.5 ml Autoinj] 50 mg SQ EVERY 7TH DAY 01/03/21 Naloxegol Oxalate [Movantik] 25 mg PO DAILY 01/03/21 Naproxen/Esomeprazole Mag [Vimovo Dr 500-20 mg Tablet] 1 tab PO BID 01/03/21 Pantoprazole [Protonix Tab*] 40 mg PO NOON 01/03/21 Ropinirole HCl [Requip*] 1 mg PO DAILY 01/03/21 Topiramate [Topamax] 200 mg PO BID 01/03/21 buPROPion HCL [Wellbutrin Xl] 300 mg PO BREAKFAST 01/03/21 Calcitrol [Rocaltrol*] 0.5 mcg PO DAILY #30 cap 01/05/21 Cholecalciferol (Vitamin D3) [Vitamin D 5,000 IU Cap*] 5,000 unit PO DAILY #30 cap 01/05/21 Ciprofloxacin HCl [Cipro 500 MG Tablet] 500 mg PO BID #10 tab 01/05/21 metroNIDAZOLE [Flagyl] 500 mg PO Q8H #15 tablet 01/05/21 - Past Medical/Surgical History Diabetic: No -: Lupus -: Psoriatic arthritis -: Colitis -: Hypothyroidism -: Hypertension -: Reynauds -: Tan -: Hysterectomy -: Cholecystectomy Psychosocial/ Personal History: Patient lives with family - Family History Father Medical History: Cancer Mother Medical History: Lung disease - Social History Smoking Status: Unknown if ever smoked Alcohol use: No CD- Drugs: No Caffeine use: Yes Place of Residence: Home Review of Systems 10-point ROS is otherwise unremarkable General: Weakness, Malaise Gastrointestinal: Abdominal Pain Physical Examination Temp Pulse Resp BP Pulse Ox 97.4 F 58 12 100/74 98 04/18/24 08:00 04/18/24 10:00 04/18/24 10:00 04/18/24 10:00 04/18/24 10:00 General: In no apparent distress, Oriented x3, Cooperative HEENT: Atraumatic Neck: Supple Respiratory: Normal air movement Cardiovascular: No edema, Regular rate/rhythm Gastrointestinal: Non-distended, Tenderness Musculoskeletal: No clubbing, No contractures Integumentary: No rashes, No cyanosis Neurological: Normal speech Laboratory Data (last 24 hrs) 04/18/24 04/18/24 02:09 02:09 WBC 24.90 H Hgb 12.8 Hct 39.9 Plt Count 473 H Sodium 140 Potassium 2.5 L* BUN 21 H Creatinine 1.44 H Glucose 120 H Magnesium 1.9 Total Bilirubin 0.3 AST 16 ALT 20 Alkaline Phosphatase 72 Lipase 60 Imagings Data: [id number] EXAM DESCRIPTION: US - CP - 04/18/2024 5:48 am CLINICAL HISTORY: cva COMPARISON: Head C Spine Mpr Wo Con dated 01/02/2021 TECHNIQUE: Real-time sonographic grayscale, color duplex, and spectral wave Doppler evaluation of the left carotid system was performed. FINDINGS: Normal high resistance waveforms are noted in bilateral external carotid artery. The common carotid artery and internal carotid arteries show normal low resistance waveforms. No significant plaque formation is seen. Peak systolic velocity less than 125 cm/ sec. ICA/CCA peak systolic ratio less than 2.0 bilaterally. Antegrade flow seen in the left vertebral artery. The right carotid system was not evaluated IMPRESSION: No significant atherosclerotic changes noted. No evidence of a hemodynamically significant stenosis of the left internal carotid artery. [id number] EXAM DESCRIPTION: CT - Chest Abdomen Pelvis W Cont - 04/18/2024 6:[address] scan of the CHEST with intravenous contrast. 2. CT scan of the ABDOMEN AND PELVIS with intravenous contrast CLINICAL HISTORY: 53 years Female CHEST PAIN. TECHNIQUE: CT imaging of the chest, abdomen and pelvis with intravenous contrast administration. Sagittal and coronal reconstructed images were performed. The CT study is performed according to ALARA (as low as reasonably achievable) or ALARA/IMAGE GENTLY, with automatic adjustment of mA and/or kV according to patient size. Performed on: 04/18/2024 at 4:43 AM Comparisons: CT chest, abdomen and pelvis performed on 01/02/2021 FINDINGS: CHEST: Lungs: The lungs are well expanded and are clear. There are no pleural effusions. There is no pneumothorax. The central airways are patent. Heart: The heart is normal in size. There is no pericardial effusion. Mediastinum: The mediastinum is unremarkable. The mediastinal vessels are normal in caliber and contour. Bones: No acute osseous abnormalities are identified. Soft tissues: No focal soft tissue abnormalities are identified. Lymphadenopathy: No pathologic hilar, mediastinal or axillary lymphadenopathy is identified. ABDOMEN/PELVIS: Liver: The liver is normal in size and configuration. No focal hepatic abnormalities are identified. Liver attenuation is within normal limits. Spleen: The spleen is normal in size, configuration and attenuation. Gallbladder and bile duct: The gallbladder is surgically absent. There is very mild prominence of the intrahepatic and extrahepatic ducts which is likely physiologic in nature following cholecystectomy. The common bile duct measures approximately 7 mm in diameter. Pancreas: The pancreas is grossly normal in size and configuration. Adrenal Glands: The adrenal glands are normal in size and configuration. Kidneys: The kidneys are normal in size and configuration. There is no evidence of hydronephrosis. There is no evidence of nephrolithiasis. There are a few small stable bilateral renal cysts. No follow-up imaging is recommended. Stomach: The stomach is grossly normal. There is no definite hiatal hernia. Bowel: The bowel gas pattern is non specific and non obstructive. There are multiple distended fluid-filled loops of colon which are nonspecific but can be due to enteritis or other inflammatory bowel disease. This finding is similar when compared to the prior study. There may be very mild colonic wall thickening involving the transverse colon. Appendix: The appendix is not clearly identified. There is no CT evidence to suggest acute appendicitis. Free air: There is no evidence of free air. Free fluid: There is no evidence of free fluid. Vasculature: The aorta is normal in caliber and contour. The inferior vena cava is grossly unremarkable. Lymphadenopathy: No pathologic lymphadenopathy is identified. Bladder: The bladder is relatively well distended and smooth in contour. Reproductive: The uterus is surgically absent. Bones: No acute osseous abnormalities are identified. There has been prior cement augmentation of L2. Soft tissues: No focal soft tissue abnormalities are identified. IMPRESSION: CT CHEST: 1. No evidence of acute intrathoracic disease. CT SCAN ABDOMEN AND PELVIS: 1. No evidence of acute intra-abdominal or intrapelvic pathology. 2. There are multiple distended fluid-filled loops of colon which are nonspecific but can be due to enteritis or other inflammatory bowel disease. This finding is similar when compared to the prior study. There may be very mild colonic wall thickening involving the transverse colon. 3. Status post cholecystectomy with very mild prominence of the intrahepatic and extrahepatic ducts which is likely physiologic in nature following cholecystectomy. 4. Prior hysterectomy. 5. Prior cement augmentation of L2. [id number] EXAM DESCRIPTION: RAD - Chest Single View - 04/18/2024 6:00 am CLINICAL HISTORY: After right IJ CVL COMPARISON: None TECHNIQUE: Single AP view of the chest. FINDINGS: Right IJ catheter tip likely in the superior cavoatrial junction. Lung volumes adequate. Cardiac silhouette is normal in size. No pneumothorax. No large pleural effusion. No focal consolidation. No acute bony finding. IMPRESSION: Right IJ catheter tip likely in the superior cavoatrial junction. No pneumothorax. Conclusions/Impression: Stage II DEXTER in the setting of hypotension/ hypovolemia -No NSAIDs -Continue IVF Hypokalemia -Replete as ordered NAG Metabolic Acidosis -Bicarb PO X1 -Continue IVF with LR Hypotension -Continue IVF -Continue Hydrocortisone Hypoalbuminemia -Consider protein supplementation Anemia in chronic illness -Monitor CBC Hypothyroidism, severe -Continue levothyroxine Pancolitis -Continue abx Hospitalist and ER notes reviewed Thank you kindly for the consultation
[2024-04-18 11:05] LABS: Albumin 3.4 g/dL (3.4-5.0); Albumin/Globulin Ratio 1.5 (1.1-1.8); Anion Gap 9.6 mEq/L (5.0-15.0); Bilirubin Total 0.4 mg/dL (0.2-1.0); Globulin 2.2 g/dL (2.3-3.5); Magnesium 1.9 mg/dL (1.6-2.4); Phosphorus 2.8 mg/dL (2.5-4.9); Potassium 3.6 mEq/L (3.5-5.1); Protein, Total 5.6 g/dL (6.4-8.2)
--- NOTE | 2024-04-18 11:16 | RAD REPORT ---
EXAM DESCRIPTION: RAD - Chest Single View - 04/18/2024 6:00 am CLINICAL HISTORY: After right IJ CVL COMPARISON: None TECHNIQUE: Single AP view of the chest. FINDINGS: Right IJ catheter tip likely in the superior cavoatrial junction. Lung volumes adequate. Cardiac silhouette is normal in size. No pneumothorax. No large pleural effusion. No focal consolidation. No acute bony finding. IMPRESSION: Right IJ catheter tip likely in the superior cavoatrial junction. No pneumothorax. Electronically signed by: Prateek Mcconnell MD 04/18/2024 06:18 AM CDT RP Z9 Due to temporary technical issues with the PACS/Fluency reporting system, reports are being signed by the in house radiologist without review as a courtesy to ensure prompt reporting. The interpreting r adiologist is fully responsible for the content of the report.
[2024-04-18 11:35] LABS: Blood Morphology Comment NOT SEEN (NOT SEEN); Platelet Estimate ADEQ; White Blood Cell Scan OK (OK)
[2024-04-18] MEDS: KCL 20 MEQ/100 mL IVPB 20 MEQ/100 ML BAG IV SCH (12:43)
--- NOTE | 2024-04-18 13:41 | RAD REPORT ---
EXAM DESCRIPTION: CT - Chest Abdomen Pelvis W Cont - 04/18/2024 6:[address] scan of the CHEST with intravenous contrast. 2. CT scan of the ABDOMEN AND PELVIS with intravenous contrast CLINICAL HISTORY: 53 years Female CHEST PAIN. TECHNIQUE: CT imaging of the chest, abdomen and pelvis with intravenous contrast administration. Sag ittal and coronal reconstructed images were performed. The CT study is performed according to ALARA ( as low as reasonably achievable) or ALARA/IMAGE GENTLY, with automatic adjustment of mA and/or kV acc ording to patient size. Performed on: 04/18/2024 at 4:43 AM Comparisons: CT chest, abdomen and pelvis performed on 01/02/2021 FINDINGS: CHEST: Lungs: The lungs are well expanded and are clear. There are no pleural effusions. There is no pneumot horax. The central airways are patent. Heart: The heart is normal in size. There is no pericardial effusion. Mediastinum: The mediastinum is unremarkable. The mediastinal vessels are normal in caliber and con tour. Bones: No acute osseous abnormalities are identified. Soft tissues: No focal soft tissue abnormalities are identified. Lymphadenopathy: No pathologic hilar, mediastinal or axillary lymphadenopathy is identified. ABDOMEN/PELVIS: Liver: The liver is normal in size and configuration. No focal hepatic abnormalities are identified. Liver attenuation is within normal limits. Spleen: The spleen is normal in size, configuration and attenuation. Gallbladder and bile duct: The gallbladder is surgically absent. There is very mild prominence of t he intrahepatic and extrahepatic ducts which is likely physiologic in nature following cholecystectom y. The common bile duct measures approximately 7 mm in diameter. Pancreas: The pancreas is grossly normal in size and configuration. Adrenal Glands: The adrenal glands are normal in size and configuration. Kidneys: The kidneys are normal in size and configuration. There is no evidence of hydronephrosis. Th ere is no evidence of nephrolithiasis. There are a few small stable bilateral renal cysts. No follow- up imaging is recommended. Stomach: The stomach is grossly normal. There is no definite hiatal hernia. Bowel: The bowel gas pattern is non specific and non obstructive. There are multiple distended fluid- filled loops of colon which are nonspecific but can be due to enteritis or other inflammatory bowel d isease. This finding is similar when compared to the prior study. There may be very mild colonic wall thickening involving the transverse colon. Appendix: The appendix is not clearly identified. There i s no CT evidence to suggest acute appendicitis. Free air: There is no evidence of free air. Free fluid: There is no evidence of free fluid. Vasculature: The aorta is normal in caliber and contour. The inferior vena cava is grossly unremarkab le. Lymphadenopathy: No pathologic lymphadenopathy is identified. Bladder: The bladder is relatively well distended and smooth in contour. Reproductive: The uterus is surgically absent. Bones: No acute osseous abnormalities are identified. There has been prior cement augmentation of L2. Soft tissues: No focal soft tissue abnormalities are identified. IMPRESSION: CT CHEST: 1. No evidence of acute intrathoracic disease. CT SCAN ABDOMEN AND PELVIS: 1. No evidence of acute intra-abdominal or intrapelvic pathology. 2. There are multiple distended fluid-filled loops of colon which are nonspecific but can be due to enteritis or other inflammatory bowel disease. This finding is similar when compared to the prior st udy. There may be very mild colonic wall thickening involving the transverse colon. 3. Status post cholecystectomy with very mild prominence of the intrahepatic and extrahepatic ducts which is likely physiologic in nature following cholecystectomy. 4. Prior hysterectomy. 5. Prior cement augmentation of L2. Electronically signed by: Ping Milner DO 04/18/2024 05:50 AM [facility] Due to temporary technical issues with the PACS/Fluency reporting system, reports are being signed by the in house radiologist without review as a courtesy to ensure prompt reporting. The interpreting r adiologist is fully responsible for the content of the report.
--- NOTE | 2024-04-18 14:35 | RAD REPORT ---
EXAM DESCRIPTION: CT - Head Brain Wo Cont - 04/18/2024 6:59 am CLINICAL HISTORY: Syncope COMPARISON: CT Head/Brain Without Contrast 01/02/2021 TECHNIQUE: Head/brain axial images acquired without contrast. Coronal and sagittal reformats created . Exam performed according to departmental dose-optimization program which includes automated exposur e control, adjustment of mA and/or kV according to patient size, and/or use of iterative reconstructi on technique. FINDINGS: No midline shift, mass effect, intracranial hemorrhage, or hydrocephalus. Brain parenchyma unremarkable. Paranasal sinuses clear. Mastoid air cells clear. No skull fracture or significant skull lesion. IMPRESSION: Unremarkable CT head/brain without contrast. Electronically signed by: Roderick Shah MD 04/18/2024 05:31 AM CDT RP Due to temporary technical issues with the PACS/Fluency reporting system, reports are being signed by the in house radiologist without review as a courtesy to ensure prompt reporting. The interpreting r adiologist is fully responsible for the content of the report.
[2024-04-18 16:38] LABS: Hematocrit 29.7 % (36.0-45.0); Hemoglobin 9.6 g/dL (12.0-15.0)
--- NOTE | 2024-04-18 17:42 | P.PN ---
Date of Service: 04/18/24 patient seen on rounds this morning feeling better, less nausea, has had a few loose stool BP improved, still low/borderline, but improved with IV fluid repeat labs pending, TSH significantly elevated, and hgb normal, compared to last labs ~1-2 yrs ago with anemic with hgb: ~9 repeat TSH ordered to re-eval start IV synthroid continue empiric antibiotics GI consulted, neprology consulted cortisol level added to AM labs to eval for adrenal insufficiency continue icu level of care
[2024-04-18] MEDS: MORPHINE 4 MG/ML SYR IV PRN (20:17)
[2024-04-18] MEDS: SODIUM BICARB 325 MG TAB PO ONE (21:50)
[2024-04-19 04:57] LABS: Absolute Lymphocytes (CBC) 1.7 K/uL (0.7-4.9); Absolute Monocytes 0.6 K/uL (0.1-1.3); Absolute Neutrophil 13.5 K/uL (1.8-8.0); Basophils % 0.1 % (0-1.3); Eosinophils % 0.1 % (0-4.4); Hematocrit 27.7 % (36.0-45.0); Lymphocytes % 10.6 % (15.3-44.8); MCH 30.1 pg (27.0-35.0); MCHC 32.6 g/dL (32.0-36.0); MCV 92.3 fL (80-100); MPV 8.3 fL (7.6-11.3); Monocytes % 4.1 % (3.3-12.3); Platelets 225 thou/uL (152-406); Red Cell Distribution Width 13.5 % (12.1-15.2)
[2024-04-19 05:00] LABS: Neutrophils % 85.1 % (41.7-73.7)
[2024-04-19 05:22] LABS: ALT/SGPT 20 U/L (13-56); Albumin 2.9 g/dL (3.4-5.0); Albumin/Globulin Ratio 1.2 (1.1-1.8); Alkaline Phosphatase 45 U/L (45-117); Anion Gap 9.6 mEq/L (5.0-15.0); BUN Blood Urea Nitrogen 11 mg/dL (7-18); Bicarbonate 22 mEq/L (21-32); Bilirubin Total 0.5 mg/dL (0.2-1.0); Creatine Phosphokinase 39 U/L (26-192); Globulin 2.4 g/dL (2.3-3.5); Glomerular Filtration Rate 74 ml/min (=/>90); Glucose Level 106 mg/dL (74-106); HDL Cholesterol 44 mg/dL (40-60); LDL Cholesterol, Calculated 79 mg/dL (<130); LDL Cholesterol,Calc NonReport 79; Magnesium 2.1 mg/dL (1.6-2.4); Phosphorus 3.1 mg/dL (2.5-4.9); Potassium 3.6 mEq/L (3.5-5.1); Protein, Total 5.3 g/dL (6.4-8.2); Sodium Level 142 mEq/L (136-145)
[2024-04-19] MEDS: Levofloxacin 250mg IV 250 MG/50 ML BAG IV SCH (05:22)
[2024-04-19 05:38] LABS: AST/SGOT < 10 U/L (15-37); Bilirubin Direct < 0.2 mg/dL (0-0.2); Bilirubin Indirect, Calculated 0.3 mg/dL (0.2-0.8)
--- NOTE | 2024-04-19 06:54 | P.PN ---
Date of Service: 04/19/24 Subjective: Overall feeling a little better today continues with persistent crampy lower abdominal pain, nausea throughout the night. no vomiting since admission abdominal pain ~same in severity. Doesn't feel any worse noted some blood when wiping after BM overnight reports some loss of vision in left eye after fall, saying she could only see see "brumfield". Resolved prior to admission back of her head feels sore ROS: 10 point ROS as noted above, otherwise negative Physical Exam: GEN: Alert, oriented, NAD HEENT: Normal conjunctiva, sclera anicteric CV: Regular rate and rhythm, no edema Pulm: Nonlabored respirations on room air, clear bilaterally, diminished at bases bilaterally ABD: Soft, mild tenderness, nondistended vitals reviewed Problem List: Sepsis secondary to Pancolitis hematochezia Syncope and collapse Hypotension Anemia, chronic Severe Hypothyroidism Psoriatic arthritis hx lupus hx hemorrhoids Sepsis secondary to Pancolitis hematochezia reports sudden onset abdominal cramping pains with nausea/vomiting/diarrhea at home Patient has prior history of hemorrhoids. Has been > 20 years since last colonoscopy. CT abdomen (04/18): multiple distended fluid-filled loops of colon which are nonspecific but can be due to enteritis or other inflammatory bowel disease Possible very mild colonic wall thickening involving transverse colon similar in comparison to prior CT in 2020 when she was hospitalized for pancolitis GI consulted continue empiric levaquin / flagyl (04/19-) afebrile, leukocytosis improving Blood cx (04/18): NGTD stool studies / urinalysis pending c. diff negative had some blood in stool 04/18, again overnight. this morning less Patient feeling better, less nausea, has had a few loose stool. Reports some blood when wiping after BM continue IV fluids with LR; at lower rate, s/p multiple liters full liquid diet for now Syncope and collapse Hypotension Patient reportedly passed out at home in bathroom and lost consciousness for unknown amount of time per patient. Was found by son who called EMS. CT head, Carotid u/s (04/18): both negative for any acute findings suspect vasovagal vs hypotension secondary to hypovolemia BP improved with IV fluid hold home antihypertensives Anemia, unknown etiology hgb down to 9s this hospitalization, similar to last labs ~1-2 yrs ago with anemic with hgb: ~9 Patient has prior history of hemmorhoids. Has been > 20 years since shes had a colonoscopy. Reports intermittent straining with BM. +some blood when wiping. Stool itself is brown in color. Monitor H&H. DEXTER, resolved Hypokalemia, improved Nephrology consulted DEXTER secondary to hypovolemia in setting of hypotension potassium improved. Monitor and replete electrolytes as needed renal function Improved with IV fluids Severe Hypothyroidism TSH significantly elevated 376 on admission. Repeat 162 (04/18) dc IV solu-cortef given normal cortisol levels (04/19) initially started due to concern of adrenal insufficiency component, however does not seem to be the case continue IV synthroid Psoriatic arthritis hx lupus confirm home meds, restart as appropriate VTE: Ambulatory Code: Full Dispo: Home Pending GI recs / wbc improves / tolerating diet without issues / BP stable
[2024-04-19 06:56] VITALS: BMI 24.5
[2024-04-19] MEDS: Ringers Lactate 1,000 ML IV SCH ×2 (08:14→16:03)
[2024-04-19] MEDS: POTASSIUM CL SA 10 MEQ TAB PO ONE (08:14)
--- NOTE | 2024-04-19 11:44 | P.PN ---
(S) Pt seen in stable condition in the ICU, no acute N/V, still with some abd cramps Vitals reviewed in the EMR General: In no apparent distress, Oriented x3, Cooperative HEENT: Atraumatic Neck: Supple Respiratory: Normal air movement Cardiovascular: No edema, Regular rate/rhythm Gastrointestinal: Non-distended, no guarding, soft, ND Musculoskeletal: No No contractures Integumentary: No rashes, Neurological: Normal speech, alert, non focal Conclusions/Impression: Stage I DEXTER in the setting of hypotension/ hypovolemia -Improved, cont IVF but lower rate, pt s/p several liters of fluids Hypokalemia -Repleted extensively yesterday, cont to monitor closely NAG Metabolic Acidosis -Cont balanced solution like LR Pancolitis -Continue w/u, abx per IM
[2024-04-20 05:44] LABS: Absolute Eosinophils 0.2 K/uL (0-0.5); Absolute Lymphocytes (CBC) 2.7 K/uL (0.7-4.9); Absolute Monocytes 0.5 K/uL (0.1-1.3); Absolute Neutrophil 8.6 K/uL (1.8-8.0); Basophils % 0.2 % (0-1.3); Eosinophils % 2.1 % (0-4.4); Hematocrit 25.2 % (36.0-45.0); Hemoglobin 8.4 g/dL (12.0-15.0); Lymphocytes % 22.6 % (15.3-44.8); MCH 31.1 pg (27.0-35.0); MCHC 33.3 g/dL (32.0-36.0); MCV 93.4 fL (80-100); MPV 8.4 fL (7.6-11.3); Monocytes % 4.2 % (3.3-12.3); Neutrophils % 70.9 % (41.7-73.7); Platelets 190 thou/uL (152-406); Red Cell Distribution Width 13.5 % (12.1-15.2)
[2024-04-20 06:44] LABS: Anion Gap 4.4 mEq/L (5.0-15.0); Magnesium 1.8 mg/dL (1.6-2.4); Potassium 3.4 mEq/L (3.5-5.1)
--- NOTE | 2024-04-20 08:00 | P.PN ---
Date of Service: 04/20/24 Subjective: Feels diarrhea is improving; still loose but less in volume. Crampy abdominal pain overnight but slightly improved compared to how it felt 1- 2 days ago still with some mild abdominal tenderness tolerated regular diet yesterday evening without issues. No nausea/vomiting No blood in stool overnight per shift summary +headache ROS: 10 point ROS as noted above, otherwise negative Physical Exam: GEN: Alert, oriented, NAD HEENT: Normal conjunctiva, sclera anicteric, tender to palpation posterior head, no laceration/ecchymosis visualized CV: Regular rate and rhythm, no edema Pulm: Nonlabored respirations on room air, clear bilaterally, diminished at bases bilaterally ABD: Soft, mild tenderness, nondistended vitals reviewed Problem List: Sepsis secondary to Pancolitis hematochezia Syncope and collapse Hypotension Anemia, chronic Severe Hypothyroidism DEXTER, resolved Hypokalemia Psoriatic arthritis hx lupus hx hemorrhoids Sepsis secondary to Pancolitis hematochezia reports sudden onset abdominal cramping pains with nausea/vomiting/diarrhea at home Patient has prior history of hemorrhoids. Has been > 20 years since last colonoscopy. CT abdomen (04/18): multiple distended fluid-filled loops of colon which are nonspecific but can be due to enteritis or other inflammatory bowel disease Possible very mild colonic wall thickening involving transverse colon similar in comparison to prior CT in 2020 when she was hospitalized for pancolitis GI consulted continue empiric levaquin / flagyl (04/19-) afebrile, leukocytosis improving Blood cx (04/18): NGTD stool studies / urinalysis pending c. diff negative had some blood in stool on 04/18 and again 04/19. no blood reported today continue IV fluids with LR; rate lowered 04/19, s/p multiple liters Patient feeling better, diarrhea improving; still loose but less in volume. tolerating liquid diet, but not much intake / not much appetite ensure BID; added 04/20 Syncope and collapse Hypotension Patient reportedly passed out at home in bathroom and lost consciousness for unknown amount of time per patient. Was found by son who called EMS. CT head, Carotid u/s (04/18): both negative for any acute findings suspect vasovagal vs hypotension secondary to hypovolemia BP improved with IV fluid hold home antihypertensives Anemia, chronic hgb down to 9s this hospitalization, similar to last labs ~1-2 yrs ago with anemic with hgb: ~9 Patient has prior history of hemmorhoids. Has been > 20 years since shes had a colonoscopy. Reports intermittent straining with BM. +some blood when wiping. Stool itself is brown in color. Monitor H&H. DEXTER, resolved Hypokalemia Nephrology consulted DEXTER secondary to hypovolemia in setting of hypotension Monitor and replete electrolytes as needed renal function Improved with IV fluids Severe Hypothyroidism TSH significantly elevated 376 on admission. dc IV solu-cortef given normal cortisol levels (04/19) initially started due to concern of adrenal insufficiency component, however does not seem to be the case TSH 162 -> 187 (04/20) continue IV synthroid Psoriatic arthritis hx lupus confirm home meds, restart as appropriate VTE: Ambulatory Code: Full Dispo: Home 2-3 days Pending wbc improves / BP stable / hgb stable
[2024-04-20] MEDS: POTASSIUM CL SA 10 MEQ TAB PO ONE (08:39)
[2024-04-20] MEDS: MAGNESIUM SULFATE 1 gm IVPB 1 GM/100 ML BAG IV ONE (08:39)
[2024-04-20] MEDS: POTASS/SODIUM PHOSPHATE 1 PKT POWD.PACK PO SCH (08:40)
[2024-04-20] MEDS: ONDANSETRON 4 MG/2 ML VIAL IV ONE (10:00)
[2024-04-20] MEDS: NACHLORIDE 0.45% 1,000 ML with POTASSIUM CL 40 MEQ IV SCH (15:25)
--- NOTE | 2024-04-20 16:38 | PN ---
Date of Progress Note: 04/20/2024 Subjective: The patient is seen and examined at bedside. She continues to have some abdominal pain, but is able to tolerate p.o. intake. She remains on IV fluids. Blood pressure continues to be hypo tensive in the 100 range. She feels okay otherwise. Objective: General: She appears in no acute distress. Lungs: Clear to auscultation. Abdomen: Diffusely tender. No rebound or guarding was noted. Extremities: Showed no evidence of edema. Laboratory Data: At this time is showing creatinine improving to 0.81, sodium of 143, potassium of 3 .4, chloride of 116, and bicarb of 26. TSH was elevated to 187 and free T4 was severely low. Cortis ol level was within normal limits. WBC count showing 12.1, hemoglobin of 8.4, hematocrit of 25.2, an d platelet count of 190. Current Medications: Include Flagyl 500 mg every 8 hours, lactated Ringer's at 75 cc an hour, potass ium chloride replacement, Levaquin 250 mg every 24 hours, and she is getting IV levothyroxine. Impression: 1.Acute renal failure secondary to acute tubular necrosis from sepsis, currently with improving whitley l function. 2.Severe colitis, possibly infectious. The patient has had similar episode 2 years ago as well. Sh e needs close outpatient GI followup and continue antibiotics. 3.Mild hypokalemia, will be repleted and IV fluids will be changed to half NS with potassium chlorid e. 4.Severe hypothyroidism. The patient is currently on IV levothyroxine. Will need close outpatient followup with Endocrinology. 5.History of psoriatic arthritis and lupus on biologic medications, currently on hold because of sea oing infection. Plan: Overall, patient is clinically stable, improving. Hypotension is improving. I will go ahead and change her IV fluids from LR to half NS with potassium chloride. Continue potassium replacement and encouraging p.o. intake, and fol low up closely. VV/MODL Voice ID: [id number] Report ID: [id number]
[2024-04-20] MEDS: ENSURE HIGH PROTEIN 237 ML CAN PO SCH (17:27)
[2024-04-21 04:17] LABS: Absolute Eosinophils 0.5 K/uL (0-0.5); Absolute Lymphocytes (CBC) 2.5 K/uL (0.7-4.9); Absolute Monocytes 0.4 K/uL (0.1-1.3); Absolute Neutrophil 6.1 K/uL (1.8-8.0); Basophils % 0.3 % (0-1.3); Eosinophils % 5.2 % (0-4.4); Hematocrit 24.5 % (36.0-45.0); Hemoglobin 8.1 g/dL (12.0-15.0); MCH 31.1 pg (27.0-35.0); MCHC 33.1 g/dL (32.0-36.0); MCV 94.1 fL (80-100); Monocytes % 4.3 % (3.3-12.3); Neutrophils % 64.2 % (41.7-73.7); Platelets 195 thou/uL (152-406); RBC Red Blood Cell Count 2.61 M/uL (3.86-4.86); Red Cell Distribution Width 13.5 % (12.1-15.2)
[2024-04-21 04:40] LABS: Anion Gap 6.8 mEq/L (5.0-15.0); Potassium 3.8 mEq/L (3.5-5.1)
[2024-04-21 07:51] LABS: Percent Reticulocyte Count 2.04 % (0.4-2.05); RBC Red Blood Cell Count 2.67 M/uL (3.86-4.86)
[2024-04-21 08:40] LABS: Specific Gravity 1.007 (1.005-1.030); Sqamous Epithelial None Seen /HPF (None Seen); Urine Bacteria None Seen /HPF (<20); Urine Bilirubin NEGATIVE (Negative); Urine Blood Negative (Negative); Urine Clarity Clear (Clear); Urine Color Light-Yellow (Yellow); Urine Culture Reflex Order NOT NEEDED; Urine Glucose NEGATIVE (Negative); Urine Ketones NEGATIVE (Negative); Urine Microscopic Reflex YN ORDER UMIC; Urine Mucus Slight /HPF (None Seen); Urine Nitrite NEGATIVE (Negative); Urine Protein NEGATIVE (Negative); Urine RBC <5 /HPF (None Seen); Urine Urobilinogen Normal (Normal); Urine WBC <5 /HPF (<5); Urine pH 6.5 (5.0-7.0)
--- NOTE | 2024-04-21 09:11 | P.PN ---
Date of Service: 04/21/24 Subjective: feels a little bit of improvement each day. abdomen doesn't feel as tender upper abdominal/epigastric discomfort ~30-45 min after eating some turkey sausage for breakfast feels gassy/pressure like in nature no bloody stool noted ambulating without issues afebrile ROS: 10 point ROS as noted above, otherwise negative Physical Exam: GEN: Alert, oriented, NAD HEENT: Normal conjunctiva, sclera anicteric, tender to palpation posterior head, no laceration/ecchymosis visualized CV: Regular rate and rhythm, no edema Pulm: Nonlabored respirations on room air, clear bilaterally, diminished at bases bilaterally ABD: Soft, mild tenderness, nondistended vitals reviewed Problem List: Sepsis secondary to Pancolitis hematochezia Syncope and collapse Hypotension Iron deficiency anemia, chronic Severe Hypothyroidism DEXTER, resolved Hypokalemia Psoriatic arthritis hx lupus hx hemorrhoids Sepsis secondary to Pancolitis hematochezia reports sudden onset abdominal cramping pains with nausea/vomiting/diarrhea at home Patient has prior history of hemorrhoids. Has been > 20 years since last colonoscopy. CT abdomen (04/18): multiple distended fluid-filled loops of colon which are nonspecific but can be due to enteritis or other inflammatory bowel disease similar in comparison to prior CT in 2020 when she was hospitalized for pancolitis GI consulted continue empiric levaquin / flagyl (04/19-) afebrile, leukocytosis resolved Blood cx (04/18): NGTD c. diff negative had some blood in stool on 04/18 and again 04/19. no blood reported today continue IV fluids with LR; rate lowered 04/19, s/p multiple liters Patient feeling better, diarrhea improving; still loose but less in volume. reports some upper abdominal/epigastric discomfort ~30-45 min after eating breakfast this morning. Advised patient to stick to liquids if solid foods exacerbating pain/discomfort ensure BID; added 04/20 Syncope and collapse Hypotension Patient reportedly passed out at home in bathroom and lost consciousness for unknown amount of time per patient. Was found by son who called EMS. CT head, Carotid u/s (04/18): both negative for any acute findings suspect vasovagal vs hypotension secondary to hypovolemia BP improved with IV fluid hold home antihypertensives Iron deficiency anemia, chronic hgb down to 9s this hospitalization, similar to last labs ~1-2 yrs ago with anemic with hgb: ~9 Patient has prior history of hemmorhoids. Has been > 20 years since shes had a colonoscopy. Reports intermittent straining with BM. +some blood when wiping. Stool itself is brown in color. iron studies this hospitalization consistent with iron deficiency anemia (iron 19, tsat%9.9%) Start IV iron (04/21) Monitor H&H. DEXTER, resolved Hypokalemia, resolved Nephrology consulted DEXTER secondary to hypovolemia in setting of hypotension Monitor and replete electrolytes as needed renal function Improved with IV fluids Severe Hypothyroidism TSH significantly elevated 376 on admission. dc IV solu-cortef given normal cortisol levels (04/19) initially started due to concern of adrenal insufficiency component, however does not seem to be the case TSH 162 -> 187 (04/20) continue IV synthroid Psoriatic arthritis hx lupus confirm home meds, restart as appropriate VTE: Ambulatory Code: Full Dispo: Home 1-2 Pending tolerating diet without issues / BP stable / hgb stable
[2024-04-21] MEDS: PANTOPRAZOLE 40MG TABLET PO ONE (09:25)
[2024-04-21] MEDS: PANTOPRAZOLE 40MG TABLET PO SCH (09:29)
[2024-04-21] MEDS: POTASSIUM CL SA 10 MEQ TAB PO ONE (09:30)
--- NOTE | 2024-04-21 16:53 | PN ---
Date of Progress Note: 04/21/2024 Subjective: The patient was seen and examined at bedside. She is doing better. She continues to hernandez ve diarrhea. Whatever she eats, runs right through her. No other overnight events were noted. Objective: Vital Signs: Reviewed and blood pressures are improving. General: She appears in no acute distress. Lungs: Clear to auscultation. Abdomen: Soft and nontender. Extremities: Showed no evidence of edema. Laboratory Data: Showing evidence of iron deficiency with low TSAT. Hemoglobin is at 8.1. Current Medications: Reviewed. Impression: 1.Acute renal failure, improving at this time. 2.Pancolitis. Remains on Flagyl and Levaquin. We will go ahead and order a dose of Ferrlecit for t he iron deficiency anemia. Continue antibiotics and electrolyte replacement protocol. VV/MODL Voice ID: [id number] Report ID: [id number]
[2024-04-22 05:23] LABS: Absolute Basophils 0.1 K/uL (0-0.5); Absolute Eosinophils 0.4 K/uL (0-0.5); Absolute Lymphocytes (CBC) 1.9 K/uL (0.7-4.9); Absolute Monocytes 0.4 K/uL (0.1-1.3); Absolute Neutrophil 4.8 K/uL (1.8-8.0); Basophils % 0.7 % (0-1.3); Eosinophils % 5.4 % (0-4.4); Hematocrit 25.5 % (36.0-45.0); Hemoglobin 8.5 g/dL (12.0-15.0); Lymphocytes % 25.8 % (15.3-44.8); MCH 31.1 pg (27.0-35.0); MCHC 33.3 g/dL (32.0-36.0); MCV 93.4 fL (80-100); MPV 7.9 fL (7.6-11.3); Monocytes % 5.1 % (3.3-12.3); Nucleated Red Blood Cells % 0.3 % (0-0); Platelets 232 thou/uL (152-406); RBC Red Blood Cell Count 2.72 M/uL (3.86-4.86); Red Cell Distribution Width 13.9 % (12.1-15.2)
[2024-04-22 05:29] LABS: Anion Gap 6.6 mEq/L (5.0-15.0); Magnesium 1.8 mg/dL (1.6-2.4); Potassium 3.6 mEq/L (3.5-5.1)
[2024-04-22 05:55] VITALS: TEMP 98.4
[2024-04-22] MEDS: MAGNESIUM SULFATE 1 gm IVPB 1 GM/100 ML BAG IV ONE (05:55)
--- NOTE | 2024-04-22 08:34 | P.DS ---
Admission Date: 04/18/24 Discharge Date: 04/22/24 Disposition: ROUTINE DISCHARGE Discharge Condition: GOOD Reason for Admission: Syncope Consultations: GI - Dr. Frey Nephrology - Dr. Kapadia, Dr. Reed, Dr. Leonard Pulmonology - Dr. Moore Brief History of Present Illness: 53yo F, PMH: hypertension, psoriatic arthritis on consentyx, SLE, hypothyroidism, Patient developed sudden onset abdominal cramping at about 10 PM last night associated with profuse diarrhea, vomiting and then dizziness with syncope while in the bathroom. Patient states that she felt like passing out but she is not sure what happened until she had her son calling on her and arrival of EMS. She is unsure how long she passed out for. She states symptoms symptoms are similar to sudden onset diarrhea and syncope during hospitalization yet 3 years ago. Workup at that time shows evidence of pancolitis and patient was treated with empirical antibiotics. Patient however states she has been told she has inflammatory colitis in the past. On arrival in the ED blood pressure was low at 70/30, WBC elevated at 24,000 with 86 5% neutrophilia, BMP shows severe low potassium of 2.5, creatinine of 1.44, she has received 2 L normal saline with blood pressure in the low 90s now. She states she is taken lisinopril earlier today. Hospital Course: Problem List: Sepsis secondary to Pancolitis hematochezia, resolved Hypotension, syncope and collapse secondary to volume depletion Iron deficiency anemia, chronic Severe Hypothyroidism DEXTER, resolved Hypokalemia Psoriatic arthritis hx lupus hx hemorrhoids Patient presented with crampy abdominal pains, nausea, vomiting, diarrhea, secondary to Pancolitis, seen on CT imaging. GI was consulted. Patient was given empiric levaquin / flagyl while hospitalized and had improvement of her symptoms. Patient is to complete ~10 more days of levaquin / flagyl for a total of 2 weeks antibiotic treatment. During her hospitalization, patient reported some blood in stool and when wiping on 04/18 and again on 04/19. On further review patient reported remote history of hemorrhoids. Has been > 20 years since last colonoscopy. Patient was feeling better, abdominal pain improved, nausea/vomiting resolved, leukocytosis resolved, hematochezia resolved, diarrhea resolved and was more formed and reported only once/day and was deemed stable for discharge. Advised patient to follow up with GI doctor in the near future for further discussion and to consider outpatient colonoscopy in the neat future. In regards to hypotension: Patient reportedly passed out at home in bathroom and lost consciousness for unknown amount of time per patient - was found by son who called EMS. CT head, carotid ultrasound were both negative for any acute findings. Blood pressure improved in the ED with fluids and stopping antihypertensives. Suspect secondary to vasovagal and hypotension secondary to hypovolemia. Advised to continue to hold home lisinopril for now - until follow up with PCP to discuss restarting. Check blood pressure around the same time each day. Keep daily diary of readings to take to follow up appointments for further adjustments of home antihypertensives. TSH was noted to be significantly elevated this admission 376 and recheck a few hours later after IV fluids resulted in TSH: 162, Free t4: 0.5. She was started on IV synthroid Initially was started on IV solu-cortef due to concern of adrenal insufficiency component, however was dc'd shortly after starting as patient did not have adrenal insufficiency. Advised to recheck thyroid studies in 2-3 months. 1 month Prescription for Synthroid 137 mcg sent. Patient was noted to have an DEXTER on admission with serum creatinine of 1.44. DEXTER secondary to hypovolemia in setting of hypotension. Renal function quickly improved with IV fluids and returned to normal. Creatinine on day of discharge: 0.71 Iron studies were checked and found to be consistent with iron deficiency anemia (iron 19, tsat%9.9%). Patient received 1 bag of IV iron while hospitalized and advised patient to continue on oral iron tablets on discharge. Recheck iron levels in a few months. Medications: levaquin and flagyl x10 more days. Synthroid 137 mcg Zofran 15 pills as needed for nausea Iron tablets stop lisinopril continue other home meds as previously prescribed. avoid NSAIDs Follow up: PCP 3-5 day Nephrology 1-2 weeks GI in 2-4 weeks Call to schedule / confirm appointments Physical Exam: GEN: Alert, oriented, NAD HEENT: Normal conjunctiva, sclera anicteric, no laceration/ecchymosis visualized CV: Regular rate and rhythm, no edema Pulm: Nonlabored respirations on room air, clear bilaterally ABD: Soft, no tenderness, nondistended Integumentary: No rashes Neuro: Normal speech, normal affect Vital Signs/Physical Exam: Temp Pulse Resp BP Pulse Ox 98.4 F 58 16 111/57 L 96 04/22/24 04:00 04/22/24 04:00 04/22/24 04:00 04/22/24 04:00 04/21/24 04:45 Laboratory Data at Discharge: WBC 7.60 thou/uL (4.3-10.9) 04/22/24 05:05 Hgb 8.5 g/dL (12.0-15.0) L 04/22/24 05:05 Hct 25.5 % (36.0-45.0) L 04/22/24 05:05 Plt Count 232 thou/uL (152-406) 04/22/24 05:05 Sodium 144 mEq/L (136-145) D 04/22/24 05:05 Potassium 3.6 mEq/L (3.5-5.1) 04/22/24 05:05 BUN 5 mg/dL (7-18) L 04/22/24 05:05 Creatinine 0.71 mg/dL (0.55-1.02) 04/22/24 05:05 Glucose 85 mg/dL (74-106) 04/22/24 05:05 Phosphorus 2.3 mg/dL (2.5-4.9) L 04/20/24 05:00 Magnesium 1.8 mg/dL (1.6-2.4) 04/22/24 05:05 Total Bilirubin 0.5 mg/dL (0.2-1.0) 04/19/24 04:31 AST < 10 U/L (15-37) L 04/19/24 04:31 ALT 20 U/L (13-56) 04/19/24 04:31 Alkaline Phosphatase 45 U/L (45-117) 04/19/24 04:31 Triglycerides 93 mg/dL (<150) 04/19/24 04:31 Cholesterol 142 mg/dL (<200) 04/19/24 04:31 HDL Cholesterol 44 mg/dL (40-60) 04/19/24 04:31 Cholesterol/HDL Ratio 3.23 04/19/24 04:31 Lipase 60 U/L (13-75) 04/18/24 02:09 Home Medications: Cyclobenzaprine HCl [Flexeril] 5 mg PO DAILY 01/03/21 Dextroamphetamine/Amphetamine [Adderall 15 mg Tablet] 15 mg PO DAILY AT SUPPER 01/03/21 Dextroamphetamine/Amphetamine [Adderall 30 mg Tablet] 30 mg PO DAILY WITH BREAKFAST 01/03/21 Folic Acid/Vit B Complex and C [Folbee Plus Tablet] 5 mg PO DAILY 01/03/21 Hydrocodone 10/APAP 325 [[place] 10/325*] 1 tab PO Q6H PRN 01/03/21 Levothyroxine [Synthroid*] 125 mcg PO [id number] 01/03/21 Methotrexate/Pf [Rasuvo 25 mg/0.5 ml Autoinj] 50 mg SQ EVERY 7TH DAY 01/03/21 Naloxegol Oxalate [Movantik] 25 mg PO DAILY 01/03/21 Naproxen/Esomeprazole Mag [Vimovo Dr 500-20 mg Tablet] 1 tab PO BID 01/03/21 Pantoprazole [Protonix Tab*] 40 mg PO NOON 01/03/21 Ropinirole HCl [Requip*] 1 mg PO DAILY 01/03/21 Topiramate [Topamax] 200 mg PO BID 01/03/21 buPROPion HCL [Wellbutrin Xl] 300 mg PO BREAKFAST 01/03/21 Calcitrol [Rocaltrol*] 0.5 mcg PO DAILY #30 cap 01/05/21 Cholecalciferol (Vitamin D3) [Vitamin D 5,000 IU Cap*] 5,000 unit PO DAILY #30 cap 01/05/21 metroNIDAZOLE [Flagyl] 500 mg PO Q8H #15 tablet 01/05/21 Lactose-Reduced Food [Boost] 237 ml PO DAILY 30 Days #30 bottle 04/22/24 Levothyroxine Sodium [Euthyrox] 137 mcg PO DAILY 30 Days #30 tab 04/22/24 Ondansetron [Zofran] 4 mg PO Q6H PRN #15 tab 04/22/24 levoFLOXacin [Levaquin] 750 mg PO DAILY 10 Days #10 tab 04/22/24 metroNIDAZOLE [Flagyl] 500 mg PO Q8H 10 Days #30 tab 04/22/24 New Medications: Lactose-Reduced Food [Boost] 237 ml PO DAILY 30 Days #30 bottle Levothyroxine Sodium [Euthyrox] 137 mcg PO DAILY 30 Days #30 tab metroNIDAZOLE [Flagyl] 500 mg PO Q8H 10 Days #30 tab levoFLOXacin [Levaquin] 750 mg PO DAILY 10 Days #10 tab Ondansetron [Zofran] 4 mg PO Q6H PRN #15 tab PRN Reason: Nausea / Vomiting Physician Discharge Instructions: Physician discharge instructions: Patient presented with crampy abdominal pains, nausea, vomiting, diarrhea, secondary to Pancolitis, seen on CT imaging. GI was consulted. Patient was given empiric levaquin / flagyl while hospitalized and had improvement of her symptoms. Patient is to complete ~10 more days of levaquin / flagyl for a total of 2 weeks antibiotic treatment. During her hospitalization, patient reported some blood in stool and when wiping on 04/18 and again on 04/19. On further review patient reported remote history of hemorrhoids. Has been > 20 years since last colonoscopy. Patient was feeling better, abdominal pain improved, nausea/vomiting resolved, leukocytosis resolved, hematochezia resolved, diarrhea resolved and was more formed and reported only once/day and was deemed stable for discharge. Advised patient to follow up with GI doctor in the near future for further discussion and to consider outpatient colonoscopy in the neat future. In regards to hypotension: Patient reportedly passed out at home in bathroom and lost consciousness for unknown amount of time per patient - was found by son who called EMS. CT head, carotid ultrasound were both negative for any acute findings. Blood pressure improved in the ED with fluids and stopping antihypertensives. Suspect secondary to vasovagal and hypotension secondary to hypovolemia. Advised to continue to hold home lisinopril for now - until follow up with PCP to discuss restarting. Check blood pressure around the same time each day. Keep daily diary of readings to take to follow up appointments for further adjustments of home antihypertensives. TSH was noted to be significantly elevated this admission 376 and recheck a few hours later after IV fluids resulted in TSH: 162, Free t4: 0.5. She was started on IV synthroid Initially was started on IV solu-cortef due to concern of adrenal insufficiency component, however was dc'd shortly after starting as patient did not have adrenal insufficiency. Advised to recheck thyroid studies in 2-3 months. 1 month Prescription for Synthroid 137 mcg sent. Patient was noted to have an DEXTER on admission with serum creatinine of 1.44. DEXTER secondary to hypovolemia in setting of hypotension. Renal function quickly improved with IV fluids and returned to normal. Creatinine on day of discharge: 0.71 Iron studies were checked and found to be consistent with iron deficiency anemia (iron 19, tsat%9.9%). Patient received 1 bag of IV iron while hospitalized and advised patient to continue on oral iron tablets on discharge. Recheck iron levels in a few months. Medications: levaquin and flagyl x10 more days. Synthroid 137 mcg Zofran 15 pills as needed for nausea Iron tablets stop lisinopril continue other home meds as previously prescribed. avoid NSAIDs Follow up: PCP 3-5 day Nephrology 1-2 weeks GI in 2-4 weeks Call to schedule / confirm appointments Followup: Jonathan Kapadia DO [ACTIVE - CAN ADMIT] - 1-2 Weeks Richar Frey MD [ACTIVE - CAN ADMIT] - (Follow up in 2-4 weeks) Valentin Reed MD [Primary Care Provider] - 1 Week Time spent managing pt's care (in minutes): 45
[2024-04-22] MEDS: POTASSIUM CL SA 10 MEQ TAB PO ONE (09:01)
[2024-04-22] MEDS: SOD FERRIC GLUC COMPLX/SUCROSE 125 MG in NA CHLORIDE 0.9% 100 ML IV SCH (09:02)
[2024-04-22 10:31] VITALS: BP 107/62; O2SAT 99
--- NOTE | 2024-04-23 12:46 | EKG ---
Test Date: 2024-04-18 Test Time: 01:45:57 [employer] Officer: SERGIO MEASUREMENT RESULTS: Intervals: Rate: 92 WA: 130 QRSD: 92 QT: 394 QTc: 487 [place]: P: 68 WA: 130 QRS: 86 T: 25 INTERPRETIVE STATEMENTS: Normal sinus rhythm Right atrial enlargement ST & T wave abnormality, consider inferior ischemia Abnormal ECG Compared to ECG 01/02/2021 19:32:27 Atrial abnormality now present Possible ischemia now present Right-axis deviation no longer present ST (T wave) deviation still present Electronically Signed On 04-23-24 12:42:15 CDT by Jose Manuel Bai
--- NOTE | 2024-04-23 12:46 | EKG ---
Test Date: 2024-04-18 Test Time: 16:52:25 Protection Officer: JAIRO MEASUREMENT RESULTS: Intervals: Rate: 54 ME: 122 QRSD: 82 QT: 436 QTc: 413 [place]: P: 65 ME: 122 QRS: 78 T: 70 INTERPRETIVE STATEMENTS: Sinus bradycardia Otherwise normal ECG Compared to ECG 04/18/2024 01:45:57 Sinus rhythm no longer present Atrial abnormality no longer present ST (T wave) deviation no longer present Possible ischemia no longer present Electronically Signed On 04-23-24 12:42:04 CDT by Jose Manuel Bai
== END 2024-04-22 11:31 | disposition home or self-care (01) | DRG 871 ==
LOC: ER 00:59 → ERHOLD 05:09 → 3RD-ICU 06:10 → 2ND 04-20 19:58
PROVIDERS: ADMIT Internal Medicine; ATTEND Hospitalist
PROC: 3E043XZ Introduction of Vasopressor into Central Vein, Percutaneous Approach (ICD-10-PCS; principal; 2024-04-18)
PROC: 02HV33Z Insertion of Infusion Device into Superior Vena Cava, Percutaneous Approach (ICD-10-PCS; 2024-04-18)
DX: A41.9 Sepsis, unspecified organism (principal); N17.0 Acute kidney failure with tubular necrosis; R65.21 Severe sepsis with septic shock; R57.1 Hypovolemic shock; E87.21 Acute metabolic acidosis; K52.9 Noninfective gastroenteritis and colitis, unspecified; F90.9 Attention-deficit hyperactivity disorder, unspecified type; L40.50 Arthropathic psoriasis, unspecified; I10 Essential (primary) hypertension; E03.9 Hypothyroidism, unspecified; M32.9 Systemic lupus erythematosus, unspecified; Z90.710 Acquired absence of both cervix and uterus; Z90.49 Acquired absence of other specified parts of digestive tract; I73.00 Raynaud's syndrome without gangrene; E87.6 Hypokalemia; D50.9 Iron deficiency anemia, unspecified
CPT/HCPCS: 36415; 70450; 71045; 71260; 74177; 80048; 80053; 80061; 81001; 82248; 82533; 82550; 82570; 82607; 83540; 83605; 83690; 83735; 84100; 84300; 84439; 84443; 84466; 84484; 85014; 85018; 85025; 85044; 87040; 87177; 87209; 87324; 87804; 87811; 93005; 93880; 96372; 99285; J0696; J1720; J2405; J2550; J2765; J2916; J3475; J3480; J7030; J7120; P9047; Q9967